=== PATIENT | male | born 1955 | race Caucasian/White ===

== ENCOUNTER → 2017-08-08 16:01 | Outpatient (CLI) | payer BC, SELFPAY ==
[2017-08-08 17:19] LABS: Absolute Lymphocyte Count 3.01 X10^3/ul (0.83-4.51); Absolute Neutrophil Count 6.2 X10^3/uL (2.0-7.7); Basophil# 0.03 X10^3/uL; Basophil% 0.3 % (0-1); Eosinophil# 0.18 X10^3/uL; Eosinophils% 1.7 % (0-5); Hematocrit 43.5 % (40-54); Hemoglobin 14.9 g/dl (13.0-16.5); Lymphocyte # 3.01 X10^3/ul (4.0); Lymphocyte % 28.6 % (19-41); Mean Corp Hgb Conc 34.3 g/gl (32-36); Mean Corpuscular Hgb 30.2 pg (27.0-32.0); Mean Corpuscular Volume 88.1 fL (80-94); Mean Platelet Vol. 10.8 fl (6.2-12.0); Monocyte# 1.09 X10^3/uL; Monocyte% 10.4 % (0-10); Neutrophil # 6.17 X10^3/uL (2.7-7.7); Neutrophil % 58.7 % (47-70); Platelet Count 203 K/mm3 (150-450); RBC Distribution Width CV 13.3 % (11.6-14.6); RBC Distribution Width SD 42.6 fl (35.1-43.9); Red Blood Count 4.94 M/mm3 (4.6-6.2); White Blood Count 10.5 K/mm3 (4.4-11.0)
[2017-08-08 17:26] LABS: ALB/GLOB Ratio 1.2 RATIO (0.9-2.4); AST(SGOT) 23 U/L (15-37); Alanine Aminotransfer ALT/SGPT 51 U/L (16-61); Albumin, Serum 3.7 g/dL (3.2-5.0); Alkaline Phosphatase 75 U/L (45-117); Anion Gap 8 (5-15); BUN 12 mg/dL (7-18); BUN/Creat Ratio 11.7 RATIO (10-20); Calcium,Total 8.6 mg/dL (8.5-10.1); Chloride 107 mmol/L (98-107); Creatinine, Serum 1.03 mg/dL (0.70-1.30); EST Glomerular Filtration Rate 78 mL/min (>60); Est Glom Filt Rate - Afr Amer 94 mL/min (>60); Globulin 3.1 g/dL (2.2-4.2); Glucose 91 mg/dL (74-106); Potassium 3.8 mmol/L (3.5-5.1); Protein, Total 6.8 g/dL (6.4-8.2); Sodium Level 142 mmol/L (136-145); Thyroid Stim Hormone (TSH) 1.68 uIU/mL (0.358-3.74); Vitamin D,25 Hydroxy 17.3 ng/mL (29.95-100.01)
[2017-08-08 17:58] LABS: POSITIVE COUNT NO; POSITIVE DIFFERENTIAL NO; POSITIVE MORPHOLOGY NO
== END ==
PROVIDERS: Family Provider Family Medicine Geriatric Medicine; PCP Family Medicine Geriatric Medicine; Visit Provider Family Medicine Geriatric Medicine
DX: E11.9 Type 2 diabetes mellitus without complications (principal); E55.9 Vitamin D deficiency, unspecified; F52.8 Other sexual dysfunction not due to a substance or known physiological condition; I10 Essential (primary) hypertension
CPT/HCPCS: 36415; 80053; 82306; 84403; 84443; 85025

== ENCOUNTER → 2017-12-19 15:22 | Outpatient (CLI) | payer BC, SELFPAY ==
[2017-12-19 17:35] LABS: Absolute Lymphocyte Count 2.73 X10^3/ul (0.83-4.51); Absolute Neutrophil Count 6.1 X10^3/uL (2.0-7.7); Basophil# 0.03 X10^3/uL; Basophil% 0.3 % (0-1); Eosinophil# 0.13 X10^3/uL; Eosinophils% 1.3 % (0-5); Hematocrit 45.1 % (40-54); Hemoglobin 15.2 g/dl (13.0-16.5); Lymphocyte # 2.73 X10^3/ul (4.0); Lymphocyte % 27.6 % (19-41); Mean Corp Hgb Conc 33.7 g/gl (32-36); Mean Corpuscular Hgb 29.5 pg (27.0-32.0); Mean Corpuscular Volume 87.4 fL (80-94); Mean Platelet Vol. 11.1 fl (6.2-12.0); Monocyte# 0.92 X10^3/uL; Monocyte% 9.3 % (0-10); Neutrophil # 6.05 X10^3/uL (2.7-7.7); Neutrophil % 61.3 % (47-70); Platelet Count 219 K/mm3 (150-450); RBC Distribution Width CV 13.5 % (11.6-14.6); RBC Distribution Width SD 42.9 fl (35.1-43.9); Red Blood Count 5.16 M/mm3 (4.6-6.2); White Blood Count 9.9 K/mm3 (4.4-11.0)
[2017-12-19 17:40] LABS: POSITIVE COUNT NO; POSITIVE DIFFERENTIAL NO; POSITIVE MORPHOLOGY NO
[2017-12-19 18:48] LABS: ALB/GLOB Ratio 1.2 RATIO (0.9-2.4); AST(SGOT) 35 U/L (15-37); Alanine Aminotransfer ALT/SGPT 69 U/L (16-61); Albumin, Serum 3.9 g/dL (3.2-5.0); Alkaline Phosphatase 78 U/L (45-117); Anion Gap 12 (5-15); BUN 9 mg/dL (7-18); BUN/Creat Ratio 9.6 RATIO (10-20); Calcium,Total 8.9 mg/dL (8.5-10.1); Chloride 105 mmol/L (98-107); Creatinine, Serum 0.94 mg/dL (0.70-1.30); EST Glomerular Filtration Rate 86 mL/min (>60); Est Glom Filt Rate - Afr Amer 104 mL/min (>60); Globulin 3.2 g/dL (2.2-4.2); Glucose 113 mg/dL (74-106); PSA,Total - Annual Screen 0.76 ng/mL (0.00-4.00); Potassium 3.8 mmol/L (3.5-5.1); Protein, Total 7.1 g/dL (6.4-8.2); Sodium Level 141 mmol/L (136-145); Thyroid Stim Hormone (TSH) 2.61 uIU/mL (0.358-3.74)
[2017-12-21 15:38] LABS: Hep C Antibodies <0.1 s/co ratio (0.0-0.9)
== END ==
PROVIDERS: Family Provider Family Medicine Geriatric Medicine; PCP Family Medicine Geriatric Medicine; Visit Provider Family Medicine Geriatric Medicine
DX: E11.9 Type 2 diabetes mellitus without complications (principal); F52.8 Other sexual dysfunction not due to a substance or known physiological condition; I10 Essential (primary) hypertension; Z12.5 Encounter for screening for malignant neoplasm of prostate; Z13.89 Encounter for screening for other disorder
CPT/HCPCS: 36415; 80053; 84153; 84403; 84443; 85025; 86803; G0103

== ENCOUNTER → 2018-03-20 13:52 | Outpatient (CLI) | payer BC, SELFPAY ==
[2018-03-20 17:27] LABS: Absolute Lymphocyte Count 2.55 X10^3/ul (0.83-4.51); Absolute Neutrophil Count 6.8 X10^3/uL (2.0-7.7); Basophil# 0.03 X10^3/uL; Basophil% 0.3 % (0-1); Eosinophil# 0.11 X10^3/uL; Hematocrit 44.4 % (40-54); Hemoglobin 15.1 g/dl (13.0-16.5); Lymphocyte # 2.55 X10^3/ul (4.0); Lymphocyte % 24.1 % (19-41); Mean Corpuscular Hgb 29.8 pg (27.0-32.0); Mean Corpuscular Volume 87.7 fL (80-94); Mean Platelet Vol. 11.5 fl (6.2-12.0); Monocyte# 1.09 X10^3/uL; Monocyte% 10.3 % (0-10); Neutrophil # 6.76 X10^3/uL (2.7-7.7); Neutrophil % 64.1 % (47-70); Platelet Count 212 K/mm3 (150-450); RBC Distribution Width CV 13.5 % (11.6-14.6); RBC Distribution Width SD 42.9 fl (35.1-43.9); Red Blood Count 5.06 M/mm3 (4.6-6.2); White Blood Count 10.6 K/mm3 (4.4-11.0)
[2018-03-20 17:40] LABS: ALB/GLOB Ratio 1.2 RATIO (0.9-2.4); AST(SGOT) 32 U/L (15-37); Alanine Aminotransfer ALT/SGPT 58 U/L (16-61); Albumin, Serum 3.7 g/dL (3.2-5.0); Alkaline Phosphatase 87 U/L (45-117); Anion Gap 9 (5-15); BUN 11 mg/dL (7-18); BUN/Creat Ratio 9.5 RATIO (10-20); Calcium,Total 8.8 mg/dL (8.5-10.1); Chloride 104 mmol/L (98-107); Creatinine, Serum 1.16 mg/dL (0.70-1.30); EST Glomerular Filtration Rate 68 mL/min (>60); Est Glom Filt Rate - Afr Amer 82 mL/min (>60); Globulin 3.2 g/dL (2.2-4.2); Glucose 140 mg/dL (74-106); Potassium 3.9 mmol/L (3.5-5.1); Protein, Total 6.9 g/dL (6.4-8.2); Sodium Level 140 mmol/L (136-145); Thyroid Stim Hormone (TSH) 1.48 uIU/mL (0.358-3.74)
[2018-03-20 17:46] LABS: POSITIVE COUNT NO; POSITIVE DIFFERENTIAL NO; POSITIVE MORPHOLOGY NO
== END ==
PROVIDERS: Family Provider Family Medicine Geriatric Medicine; PCP Family Medicine Geriatric Medicine; Visit Provider Family Medicine Geriatric Medicine
DX: E11.9 Type 2 diabetes mellitus without complications (principal); F52.8 Other sexual dysfunction not due to a substance or known physiological condition; I10 Essential (primary) hypertension
CPT/HCPCS: 36415; 80053; 84403; 84443; 85025

== ENCOUNTER → 2018-06-20 16:25 | Outpatient (CLI) | payer BC, SELFPAY ==
[2018-06-20 17:09] LABS: Absolute Neutrophil Count 6.7 X10^3/uL (2.0-7.7); Basophil# 0.03 X10^3/uL; Basophil% 0.3 % (0-1); Eosinophil# 0.15 X10^3/uL; Eosinophils% 1.4 % (0-5); Hematocrit 44.1 % (40-54); Lymphocyte % 27.5 % (19-41); Mean Corpuscular Hgb 29.7 pg (27.0-32.0); Mean Corpuscular Volume 87.3 fL (80-94); Mean Platelet Vol. 11.1 fl (6.2-12.0); Monocyte# 0.97 X10^3/uL; Monocyte% 8.9 % (0-10); Neutrophil # 6.72 X10^3/uL (2.7-7.7); Neutrophil % 61.5 % (47-70); Platelet Count 207 K/mm3 (150-450); RBC Distribution Width CV 13.4 % (11.6-14.6); Red Blood Count 5.05 M/mm3 (4.6-6.2); White Blood Count 10.9 K/mm3 (4.4-11.0)
[2018-06-20 17:17] LABS: POSITIVE COUNT NO; POSITIVE DIFFERENTIAL NO; POSITIVE MORPHOLOGY NO
[2018-06-20 17:56] LABS: ALB/GLOB Ratio 1.2 RATIO (0.9-2.4); AST(SGOT) 26 U/L (15-37); Alanine Aminotransfer ALT/SGPT 55 U/L (16-61); Albumin, Serum 3.8 g/dL (3.2-5.0); Alkaline Phosphatase 93 U/L (45-117); Anion Gap 9 (5-15); BUN 9 mg/dL (7-18); Calcium,Total 8.8 mg/dL (8.5-10.1); Chloride 101 mmol/L (98-107); EST Glomerular Filtration Rate 80 mL/min (>60); Est Glom Filt Rate - Afr Amer 97 mL/min (>60); Globulin 3.1 g/dL (2.2-4.2); Glucose 199 mg/dL (74-106); Potassium 3.7 mmol/L (3.5-5.1); Protein, Total 6.9 g/dL (6.4-8.2); Sodium Level 139 mmol/L (136-145); Thyroid Stim Hormone (TSH) 1.75 uIU/mL (0.358-3.74)
== END ==
PROVIDERS: Family Provider Family Medicine Geriatric Medicine; PCP Family Medicine Geriatric Medicine; Visit Provider Family Medicine Geriatric Medicine
DX: E11.9 Type 2 diabetes mellitus without complications (principal); E23.6 Other disorders of pituitary gland; F52.8 Other sexual dysfunction not due to a substance or known physiological condition; I10 Essential (primary) hypertension
CPT/HCPCS: 36415; 80053; 84403; 84443; 85025

== ENCOUNTER → 2018-09-19 | Outpatient (CLI) | payer BC, SELFPAY ==
[2016-08-23 12:00] VITALS: BMI 39.2
[2018-09-19 17:33] LABS: Absolute Lymphocyte Count 2.82 X10^3/ul (0.83-4.51); Absolute Neutrophil Count 6.4 X10^3/uL (2.0-7.7); Basophil# 0.03 X10^3/uL; Basophil% 0.3 % (0-1); Eosinophil# 0.13 X10^3/uL; Eosinophils% 1.2 % (0-5); Hematocrit 43.5 % (40-54); Hemoglobin 14.7 g/dl (13.0-16.5); Lymphocyte # 2.82 X10^3/ul (4.0); Lymphocyte % 26.4 % (19-41); Mean Corp Hgb Conc 33.8 g/gl (32-36); Mean Corpuscular Hgb 28.8 pg (27.0-32.0); Mean Corpuscular Volume 85.3 fL (80-94); Monocyte# 1.31 X10^3/uL; Monocyte% 12.2 % (0-10); Neutrophil # 6.38 X10^3/uL (2.7-7.7); Neutrophil % 59.6 % (47-70); Platelet Count 209 K/mm3 (150-450); RBC Distribution Width CV 13.7 % (11.6-14.6); White Blood Count 10.7 K/mm3 (4.4-11.0)
[2018-09-19 17:59] LABS: POSITIVE COUNT NO; POSITIVE DIFFERENTIAL NO; POSITIVE MORPHOLOGY NO
[2018-09-19 18:18] LABS: ALB/GLOB Ratio 1.2 RATIO (0.9-2.4); AST(SGOT) 25 U/L (15-37); Alanine Aminotransfer ALT/SGPT 45 U/L (16-61); Albumin, Serum 3.7 g/dL (3.2-5.0); Alkaline Phosphatase 74 U/L (45-117); Anion Gap 9 (5-15); BUN 12 mg/dL (7-18); BUN/Creat Ratio 12.4 RATIO (10-20); Calcium,Total 9.1 mg/dL (8.5-10.1); Chloride 105 mmol/L (98-107); Creatinine, Serum 0.96 mg/dL (0.70-1.30); EST Glomerular Filtration Rate 83 mL/min (>60); Est Glom Filt Rate - Afr Amer 101 mL/min (>60); Globulin 3.2 g/dL (2.2-4.2); Glucose 83 mg/dL (74-106); Potassium 3.8 mmol/L (3.5-5.1); Protein, Total 6.9 g/dL (6.4-8.2); Sodium Level 141 mmol/L (136-145); Thyroid Stim Hormone (TSH) 2.24 uIU/mL (0.358-3.74)
== END | disposition home or self-care (01) ==
LOC: POLAB3 16:26
PROVIDERS: Family Provider Family Medicine Geriatric Medicine; PCP Family Medicine Geriatric Medicine; Visit Provider Family Medicine Geriatric Medicine
DX: E11.9 Type 2 diabetes mellitus without complications (principal); F52.8 Other sexual dysfunction not due to a substance or known physiological condition; I10 Essential (primary) hypertension
CPT/HCPCS: 36415; 80053; 84403; 84443; 85025

== ENCOUNTER → 2018-12-20 | Outpatient (CLI) | payer BC, SELFPAY ==
[2016-08-23 12:00] VITALS: BMI 39.2
[2018-12-20 17:21] LABS: ALB/GLOB Ratio 1.1 RATIO (0.9-2.4); AST(SGOT) 27 U/L (15-37); Alanine Aminotransfer ALT/SGPT 37 U/L (16-61); Albumin, Serum 3.6 g/dL (3.2-5.0); Alkaline Phosphatase 74 U/L (45-117); Anion Gap 4 (5-15); BUN 9 mg/dL (7-18); BUN/Creat Ratio 8.7 RATIO (10-20); Calcium,Total 8.8 mg/dL (8.5-10.1); Chloride 109 mmol/L (98-107); Creatinine, Serum 1.03 mg/dL (0.70-1.30); EST Glomerular Filtration Rate 77 mL/min (>60); Est Glom Filt Rate - Afr Amer 94 mL/min (>60); Globulin 3.3 g/dL (2.2-4.2); Glucose 87 mg/dL (74-106); PSA,Total - Annual Screen 0.48 ng/mL (0.00-4.00); Potassium 4.3 mmol/L (3.5-5.1); Protein, Total 6.9 g/dL (6.4-8.2); Sodium Level 141 mmol/L (136-145)
[2018-12-20 18:29] LABS: Hematocrit 43.9 % (40-54); Hemoglobin 14.7 g/dL (13.0-16.5); Mean Corpuscular Volume 90.3 fL (80-94); Red Blood Count 4.86 M/mm3 (4.6-6.2)
[2018-12-20 18:30] LABS: Basophil% 0.5 % (0-1); Differential Indicated SCAN CRITERIA MET; Eosinophils% 1.8 % (0-5); Lymphocyte % 26.5 % (19-41); Mean Corp Hgb Conc 33.5 g/dL (32-36); Mean Corpuscular Hgb 30.2 pg (27.0-32.0); Mean Platelet Vol. 11.5 fl (6.2-12.0); Monocyte% 9.8 % (0-10); POSITIVE COUNT YES; POSITIVE DIFFERENTIAL NO; POSITIVE MORPHOLOGY NO; Platelet Count 186 K/mm3 (150-450); RBC Distribution Width CV 13.5 % (11.6-14.6); RBC Distribution Width SD 44.7 fl (35.1-43.9)
[2018-12-20 18:31] LABS: Absolute Lymphocyte Count 2.65 X10^3/uL (0.83-4.51); Absolute Neutrophil Count 6.1 X10^3/uL (2.0-7.7); Basophil# 0.05 X10^3/uL; Eosinophil# 0.18 X10^3/uL; Lymphocyte # 2.65 X10^3/ul (4.0); Monocyte# 0.98 X10^3/uL; Neutrophil # 6.09 X10^3/uL (2.7-7.7)
[2018-12-20 18:32] LABS: Platelet Estimate ADEQUATE (ADEQ); Red Cell Morphology NORM C+C NORMAL (NORM C&C)
== END | disposition home or self-care (01) ==
LOC: POLAB3 16:03
PROVIDERS: Family Provider Family Medicine Geriatric Medicine; PCP Family Medicine Geriatric Medicine; Visit Provider Family Medicine Geriatric Medicine
DX: E11.9 Type 2 diabetes mellitus without complications (principal); E23.6 Other disorders of pituitary gland; I10 Essential (primary) hypertension; Z12.5 Encounter for screening for malignant neoplasm of prostate
CPT/HCPCS: 36415; 80053; 84153; 84403; 84443; 85025; G0103

== ENCOUNTER → 2019-06-20 15:36 | Outpatient (CLI) | payer BC, SELFPAY ==
[2016-08-23 12:00] VITALS: BMI 39.2
[2019-06-20 17:27] LABS: Absolute Lymphocyte Count 2.57 X10^3/uL (0.83-4.51); Absolute Neutrophil Count 5.7 X10^3/uL (2.0-7.7); Basophil# 0.04 X10^3/uL; Basophil% 0.4 % (0-1); Eosinophil# 0.16 X10^3/uL; Eosinophils% 1.7 % (0-5); Hematocrit 43.9 % (40-54); Hemoglobin 14.6 g/dL (13.0-16.5); Lymphocyte # 2.57 X10^3/ul (4.0); Lymphocyte % 27.3 % (19-41); Mean Corp Hgb Conc 33.3 g/dL (32-36); Mean Corpuscular Hgb 29.6 pg (27.0-32.0); Mean Corpuscular Volume 88.9 fL (80-94); Mean Platelet Vol. 10.8 fl (6.2-12.0); Monocyte# 0.93 X10^3/uL; Monocyte% 9.9 % (0-10); NRBC Flagged by Analyzer 0 % (0-5); Neutrophil # 5.68 X10^3/uL (2.7-7.7); Neutrophil % 60.2 % (47-70); Platelet Count 217 K/mm3 (150-450); RBC Distribution Width CV 13.8 % (11.6-14.6); RBC Distribution Width SD 44.6 fl (35.1-43.9); Red Blood Count 4.94 M/mm3 (4.6-6.2); White Blood Count 9.4 K/mm3 (4.4-11.0)
[2019-06-20 18:05] LABS: ALB/GLOB Ratio 1.2 RATIO (0.9-2.4); AST(SGOT) 21 U/L (15-37); Alanine Aminotransfer ALT/SGPT 48 U/L (16-61); Albumin, Serum 3.8 g/dL (3.2-5.0); Alkaline Phosphatase 76 U/L (45-117); Anion Gap 5 (5-15); BUN 11 mg/dL (7-18); BUN/Creat Ratio 9.9 RATIO (10-20); Chloride 105 mmol/L (98-107); Creatinine, Serum 1.11 mg/dL (0.70-1.30); EST Glomerular Filtration Rate 71 mL/min (>60); Est Glom Filt Rate - Afr Amer 86 mL/min (>60); Globulin 3.1 g/dL (2.2-4.2); Glucose 130 mg/dL (74-106); Potassium 3.9 mmol/L (3.5-5.1); Protein, Total 6.9 g/dL (6.4-8.2); Sodium Level 139 mmol/L (136-145); Thyroid Stim Hormone (TSH) 1.89 uIU/mL (0.358-3.74)
== END ==
PROVIDERS: PCP Family Medicine Geriatric Medicine; Visit Provider Family Medicine Geriatric Medicine
DX: E11.9 Type 2 diabetes mellitus without complications (principal); F52.8 Other sexual dysfunction not due to a substance or known physiological condition; I10 Essential (primary) hypertension
CPT/HCPCS: 36415; 80053; 84403; 84443; 85025

== ENCOUNTER → 2019-12-24 15:26 | Outpatient (CLI) | payer BC, SELFPAY ==
[2016-08-23 12:00] VITALS: BMI 39.2
[2019-12-24 17:19] LABS: Absolute Lymphocyte Count 2.59 X10^3/uL (0.83-4.51); Absolute Neutrophil Count 6.3 X10^3/uL (2.0-7.7); Basophil# 0.04 X10^3/uL; Basophil% 0.4 % (0-1); Eosinophil# 0.16 X10^3/uL; Eosinophils% 1.6 % (0-5); Hemoglobin 14.7 g/dL (13.0-16.5); Lymphocyte # 2.59 X10^3/ul (4.0); Lymphocyte % 25.8 % (19-41); Mean Corp Hgb Conc 33.4 g/dL (32-36); Mean Corpuscular Hgb 29.8 pg (27.0-32.0); Mean Corpuscular Volume 89.1 fL (80-94); Monocyte# 0.91 X10^3/uL; Monocyte% 9.1 % (0-10); NRBC Flagged by Analyzer 0 % (0-5); Neutrophil # 6.29 X10^3/uL (2.7-7.7); Neutrophil % 62.7 % (47-70); Platelet Count 233 K/mm3 (150-450); RBC Distribution Width CV 13.2 % (11.6-14.6); RBC Distribution Width SD 43.2 fl (35.1-43.9); Red Blood Count 4.94 M/mm3 (4.6-6.2)
[2019-12-24 17:40] LABS: Vitamin D,25 Hydroxy 33.1 ng/mL
[2019-12-24 17:53] LABS: ALB/GLOB Ratio 1.2 RATIO (0.9-2.4); AST(SGOT) 17 U/L (15-37); Alanine Aminotransfer ALT/SGPT 40 U/L (16-61); Albumin, Serum 3.7 g/dL (3.2-5.0); Alkaline Phosphatase 75 U/L (45-117); Anion Gap 4 (5-15); BUN 12 mg/dL (7-18); BUN/Creat Ratio 9.9 RATIO (10-20); Calcium,Total 8.9 mg/dL (8.5-10.1); Chloride 108 mmol/L (98-107); Creatinine, Serum 1.21 mg/dL (0.70-1.30); EST Glomerular Filtration Rate 64 mL/min (>60); Est Glom Filt Rate - Afr Amer 77 mL/min (>60); Globulin 3.1 g/dL (2.2-4.2); Glucose 108 mg/dL (74-106); PSA,Total - Annual Screen 1.27 ng/mL (0.00-4.00); Potassium 3.7 mmol/L (3.5-5.1); Protein, Total 6.8 g/dL (6.4-8.2); Sodium Level 141 mmol/L (136-145); Thyroid Stim Hormone (TSH) 2.02 uIU/mL (0.358-3.74)
== END ==
PROVIDERS: PCP Family Medicine Geriatric Medicine; Visit Provider Family Medicine Geriatric Medicine
DX: E11.9 Type 2 diabetes mellitus without complications (principal); E55.9 Vitamin D deficiency, unspecified; F52.8 Other sexual dysfunction not due to a substance or known physiological condition; I10 Essential (primary) hypertension; Z12.5 Encounter for screening for malignant neoplasm of prostate
CPT/HCPCS: 36415; 80053; 82306; 84153; 84403; 84443; 85025; G0103

== ENCOUNTER → 2020-06-23 15:44 | Outpatient (CLI) | payer MEDICARE, SELFPAY ==
[2016-08-23 12:00] VITALS: BMI 39.2
[2020-06-23 17:03] LABS: Absolute Lymphocyte Count 2.95 X10^3/uL (0.83-4.51); Absolute Neutrophil Count 6.3 X10^3/uL (2.0-7.7); Basophil# 0.05 X10^3/uL; Basophil% 0.5 % (0-1); Eosinophil# 0.15 X10^3/uL; Eosinophils% 1.4 % (0-5); Hematocrit 45.4 % (40-54); Hemoglobin 14.8 g/dL (13.0-16.5); Lymphocyte # 2.95 X10^3/ul (4.0); Lymphocyte % 28.3 % (19-41); Mean Corp Hgb Conc 32.6 g/dL (32-36); Mean Corpuscular Hgb 28.8 pg (27.0-32.0); Mean Corpuscular Volume 88.3 fL (80-94); Mean Platelet Vol. 10.8 fl (6.2-12.0); Monocyte# 0.89 X10^3/uL; Monocyte% 8.5 % (0-10); NRBC Flagged by Analyzer 0 % (0-5); Neutrophil # 6.33 X10^3/uL (2.7-7.7); Neutrophil % 60.7 % (47-70); Platelet Count 237 K/mm3 (150-450); RBC Distribution Width CV 13.8 % (11.6-14.6); RBC Distribution Width SD 44.4 fl (35.1-43.9); Red Blood Count 5.14 M/mm3 (4.6-6.2); White Blood Count 10.4 K/mm3 (4.4-11.0)
[2020-06-23 17:36] LABS: Vitamin D,25 Hydroxy 11.8 ng/mL
[2020-06-23 18:17] LABS: ALB/GLOB Ratio 1.2 RATIO (0.9-2.4); AST(SGOT) 23 U/L (15-37); Alanine Aminotransfer ALT/SGPT 48 U/L (16-61); Albumin, Serum 3.7 g/dL (3.2-5.0); Alkaline Phosphatase 92 U/L (45-117); Anion Gap 6 (5-15); BUN 12 mg/dL (7-18); BUN/Creat Ratio 11.4 RATIO (10-20); Calcium,Total 9.1 mg/dL (8.5-10.1); Chloride 104 mmol/L (98-107); Creatinine, Serum 1.05 mg/dL (0.70-1.30); EST Glomerular Filtration Rate 75 mL/min (>60); Est Glom Filt Rate - Afr Amer 91 mL/min (>60); Globulin 3.2 g/dL (2.2-4.2); Glucose 144 mg/dL (74-106); Potassium 4.1 mmol/L (3.5-5.1); Protein, Total 6.9 g/dL (6.4-8.2); Sodium Level 140 mmol/L (136-145)
== END ==
PROVIDERS: PCP Family Medicine Geriatric Medicine; Visit Provider Family Medicine Geriatric Medicine
DX: E11.9 Type 2 diabetes mellitus without complications (principal); E55.9 Vitamin D deficiency, unspecified; F52.8 Other sexual dysfunction not due to a substance or known physiological condition; I10 Essential (primary) hypertension
CPT/HCPCS: 36415; 80053; 82306; 84403; 84443; 85025

== ENCOUNTER → 2020-12-24 11:28 | Outpatient (CLI) | payer MEDICARE, SELFPAY ==
[2020-12-24 12:47] LABS: Absolute Lymphocyte Count 0.89 X10^3/uL (0.83-4.51); Absolute Neutrophil Count 4.6 X10^3/uL (2.0-7.7); Basophil# 0.03 X10^3/uL; Basophil% 0.5 % (0-1); Eosinophils% 1.6 % (0-5); Hematocrit 41.7 % (40-54); Hemoglobin 13.3 g/dL (13.0-16.5); Lymphocyte # 0.89 X10^3/ul (0.83-4.51); Lymphocyte % 13.9 % (19-41); Mean Corp Hgb Conc 31.9 g/dL (32-36); Mean Corpuscular Hgb 31.7 pg (27.0-32.0); Mean Corpuscular Volume 99.3 fL (80-94); Mean Platelet Vol. 11.6 fl (6.2-12.0); Monocyte# 0.74 X10^3/uL; Monocyte% 11.5 % (0-10); NRBC Flagged by Analyzer 0 % (0-5); Neutrophil # 4.63 X10^3/uL (2.7-7.7); Neutrophil % 72.2 % (47-70); Platelet Count 233 K/mm3 (150-450); RBC Distribution Width CV 15.7 % (11.6-14.6); RBC Distribution Width SD 57.1 fl (35.1-43.9); White Blood Count 6.4 K/mm3 (4.4-11.0)
[2020-12-24 13:05] LABS: Vitamin D,25 Hydroxy 33.5 ng/mL
[2020-12-24 13:26] LABS: ALB/GLOB Ratio 1.1 RATIO (0.9-2.4); AST(SGOT) 35 U/L (15-37); Alanine Aminotransfer ALT/SGPT 62 U/L (16-61); Albumin, Serum 3.4 g/dL (3.2-5.0); Alkaline Phosphatase 82 U/L (45-117); Anion Gap 5 (5-15); BUN 10 mg/dL (7-18); BUN/Creat Ratio 10.3 RATIO (10-20); Calcium,Total 8.8 mg/dL (8.5-10.1); Chloride 107 mmol/L (98-107); Creatinine, Serum 0.97 mg/dL (0.70-1.30); EST Glomerular Filtration Rate 82 mL/min (>60); Est Glom Filt Rate - Afr Amer 100 mL/min (>60); Globulin 3.2 g/dL (2.2-4.2); Glucose 228 mg/dL (74-106); PSA,Total - Annual Screen 0.65 ng/mL (0.00-4.00); Protein, Total 6.6 g/dL (6.4-8.2); Sodium Level 138 mmol/L (136-145); Thyroid Stim Hormone (TSH) 2.81 uIU/mL (0.358-3.74)
== END ==
PROVIDERS: PCP Family Medicine Geriatric Medicine; Visit Provider Family Medicine Geriatric Medicine
DX: E11.9 Type 2 diabetes mellitus without complications (principal); E55.9 Vitamin D deficiency, unspecified; F52.8 Other sexual dysfunction not due to a substance or known physiological condition; I10 Essential (primary) hypertension; Z12.5 Encounter for screening for malignant neoplasm of prostate
CPT/HCPCS: 36415; 80053; 82306; 84153; 84403; 84443; 85025; G0103

== ENCOUNTER 2021-03-09 04:23 | Emergency (ER) | payer MEDICARE, SELFPAY ==
[2021-03-09 04:24] VITALS: BP 173/92; PULSE 91; RESP 16; TEMP 36.2; O2SAT 99; BMI 43.9
--- NOTE | 2021-03-09 05:00 | ED.VIS.LOWEX ---
HPI History of Present Illness Chief Complaint: Lower Extremity Injury Informant: patient and spouse/S.O. Narrative Narrative: Patient is a 65-year-old male with history of hypertension, diabetes and peripheral neuropathy presenting with left lower extremity pain and redness. Patient states he woke up and felt that his left lower leg was swollen and tender. He also noticed it felt red and hot. He notes it felt better when he started moving around. He is concerned he could have a blood clot and came to the emergency room to be evaluated further. He denies any history of DVT or PE. He denies any recent trauma, immobilization or other risk factors. He notes he does have a history of dependent edema and what sounds like venous stasis. How he denies any fever or chills. [place] any chest pain, shortness of breath or difficulty breathing. No new numbness or tingling. No other complaints at this time. [facility] Medical History Diabetes mellitus High cholesterol HTN (hypertension) Home Medications metoprolol tartrate 25 mg PO BID 08/23/16 [History Last Taken 08/23/16] cephalexin 500 mg PO Q6 #40 cap 03/09/21 [Rx Last Taken Unknown] hydrochlorothiazide 25 mg PO DAILY 03/09/21 [History Last Taken Unknown] losartan 100 mg PO DAILY 03/09/21 [History Last Taken Unknown] metformin 1,000 mg PO BID 03/09/21 [History Last Taken Unknown] pioglitazone 30 mg PO DAILY 03/09/21 [History Last Taken Unknown] pravastatin 80 mg PO DAILY 03/09/21 [History Last Taken Unknown] Allergy/AdvReac Type Severity Reaction Status Date / Time No Known Allergies Allergy Verified 03/09/21 04:35 Social History Smoking Status: Former smoker ROS ROS ED Constitutional Constitutional ED: Denies chills or fever(s) Eyes Eyes: Denies change in vision ENT ENT ED: Denies rhinorrhea or sore throat Cardiovascular Cardiovascular: Denies chest pain or palpitations Respiratory/Chest Respiratory/Chest: Denies cough or dyspnea Gastrointestinal Gastrointestinal: Denies abdominal pain or nausea Genitourinary Genitourinary ED: Denies dysuria or hematuria Musculoskeletal Musculoskeletal: Reports other Details: left leg redness and pain ; Denies arthralgias or myalgias Integumentary Reports rash Neurologic Neurologic: Denies headache(s), paresthesias or weakness Psychiatric Psychiatric: Denies anxiety or depression EXAM Physical Exam Const Vital Signs: 03/09/21 04:24 Temperature 97.2 F L Temperature Source Temporal Pulse Rate 91 Respiratory Rate 16 Blood Pressure 173/92 H Blood Pressure Mean 119 Pulse Ox 99 Positive well nourished and well developed General Appearance ED: well developed HEENT normocephalic and atraumatic Eyes PERRL Neck full ROM and supple Chest Wall inspection of chest normal Resp normal respiratory effort and clear to auscultation bilaterally Cardio regular rate, regular rhythm and no murmurs Cardio Narrative: 2+ DP and PT pulses GI non-distended Extremity normal to inspection and full ROM Extremity Narrative: No palpable cords General Extremety ED: Negative for edema General Extremity: Negative for edema Neuro oriented x3 and moves all extremities Sensorium / Orientation: alert Motor Exam: strength 5/5 throughout Psych mental status grossly normal Skin Skin Narrative: Bilateral venous stasis changes to the ankles. On the left patient has more pronounced erythema of the distal shins and erythema involving the posterior calf. There is no associated warmth or fluctuance. No drainage. No significant tenderness to palpation. MDM MDM MDM Narrative Medical decision making narrative: Patient is evaluated for and discomfort to his left lower extremity. He appears nontoxic and in no acute distress. Vital signs are markable for mild hypertension. Patient is not have any risk factors for DVT or PE. Differential includes superficial thrombophlebitis, early cellulitis or DVT. Patient does not have any physical exam or symptoms consistent with a PE. Will obtain a D-dimer as I do think he is low risk. I am more concerned for possible infection and will cover him with Keflex. D-dimer is normal. I do not think a venous duplex is indicated. I suspect patient has cellulitis. Will be started on Keflex and given first dose in the emergency room. Patient agreeable with this. Instructed to take ibuprofen or Tylenol as needed for pain and wear compression stockings. Can do cool compresses to the leg as needed for symptom relief. Will follow up with primary care doctor and given return precautions. Lab Data Attestation: I reviewed the patient's lab results. Labs: Laboratory Results - last 24 hr 03/09/21 04:54 D-Dimer Quant (PE/DVT) 0.38 Discharge Plan Triage Chief Complaint: Lower Extremity Injury ED Provider: Katie Hough Dx/Rx/DC Orders Clinical Impression: Cellulitis of left lower extremity without foot, Acute pain of left lower extremity Instructions: ED Cellulitis Prescriptions: New cephalexin 500 mg capsule 500 mg PO Q6 Qty: 40 RF: 0 No Action metoprolol tartrate 25 MG tablet 25 mg PO BID RF: 0 pravastatin 80 mg tablet 80 mg PO DAILY RF: 0 metformin 1,000 mg tablet 1,000 mg PO BID RF: 0 hydrochlorothiazide 25 mg tablet 25 mg PO DAILY RF: 0 pioglitazone 30 mg tablet 30 mg PO DAILY RF: 0 losartan 100 mg tablet 100 mg PO DAILY RF: 0 Primary Care Provider: William Arnold Chi Referrals: William Arnold Chi, MD [Primary Care Provider] - Activity Restrictions/Additional Instructions: Your D-dimer was normal today. I do not think this is a blood clot. I think you have either an early cellulitis/skin infection of your leg. Apply cool compresses. Wear compression stockings. Take antibiotics as prescribed. Return if you have worsening symptoms especially after 48 hours of being on the antibiotics. Disposition Disposition: Home, Self Care
[2021-03-09 05:13] LABS: D-Dimer Quantitative (DVT/PE) 0.38 FEU/ug/m (0.27-0.49)
[2021-03-09] MEDS: Cephalexin 250 MG Capsule 500 MG PO (05:27)
[2021-03-09 05:28] VITALS: PULSE 100; RESP 18; O2SAT 98
== END 2021-03-09 05:49 | disposition home or self-care (01) ==
PROVIDERS: Emergency Provider Emergency Medicine; PCP Family Medicine Geriatric Medicine
DX: L03.116 Cellulitis of left lower limb (principal); M79.605 Pain in left leg; I10 Essential (primary) hypertension; E11.42 Type 2 diabetes mellitus with diabetic polyneuropathy; E78.00 Pure hypercholesterolemia, unspecified; Z79.84 Long term (current) use of oral hypoglycemic drugs; Z79.899 Other long term (current) drug therapy; Z87.891 Personal history of nicotine dependence
CPT/HCPCS: 85379; 99283

== ENCOUNTER → 2021-03-30 09:51 | Outpatient (CLI) | payer MEDICARE, SELFPAY ==
[2021-03-30 12:38] LABS: Absolute Lymphocyte Count 1.49 X10^3/uL (0.83-4.51); Absolute Neutrophil Count 14.1 X10^3/uL (2.0-7.7); Basophil# 0.05 X10^3/uL; Basophil% 0.3 % (0-1); Eosinophil# 0.06 X10^3/uL; Eosinophils% 0.3 % (0-5); Hematocrit 45.3 % (40-54); Hemoglobin 14.9 g/dL (13.0-16.5); Lymphocyte # 1.49 X10^3/ul (0.83-4.51); Lymphocyte % 8.6 % (19-41); Mean Corp Hgb Conc 32.9 g/dL (32-36); Mean Corpuscular Hgb 28.9 pg (27.0-32.0); Mean Corpuscular Volume 87.8 fL (80-94); Mean Platelet Vol. 11.1 fl (6.2-12.0); Monocyte% 8.7 % (0-10); NRBC Flagged by Analyzer 0 % (0-5); Neutrophil # 14.13 X10^3/uL (2.7-7.7); Neutrophil % 81.6 % (47-70); Platelet Count 191 K/mm3 (150-450); RBC Distribution Width CV 13.6 % (11.6-14.6); RBC Distribution Width SD 44.1 fl (35.1-43.9); Red Blood Count 5.16 M/mm3 (4.6-6.2); White Blood Count 17.3 K/mm3 (4.4-11.0)
[2021-03-30 12:51] LABS: Vitamin D,25 Hydroxy 14.2 ng/mL
[2021-03-30 12:57] LABS: ALB/GLOB Ratio 0.9 RATIO (0.9-2.4); AST(SGOT) 18 U/L (15-37); Alanine Aminotransfer ALT/SGPT 39 U/L (16-61); Albumin, Serum 3.4 g/dL (3.2-5.0); Alkaline Phosphatase 95 U/L (45-117); Anion Gap 7 (5-15); BUN 9 mg/dL (7-18); BUN/Creat Ratio 9.1 RATIO (10-20); Calcium,Total 9.5 mg/dL (8.5-10.1); Chloride 103 mmol/L (98-107); Creatinine, Serum 0.99 mg/dL (0.70-1.30); EST Glomerular Filtration Rate 81 mL/min (>60); Est Glom Filt Rate - Afr Amer 97 mL/min (>60); Globulin 3.8 g/dL (2.2-4.2); Glucose 167 mg/dL (74-106); Potassium 3.9 mmol/L (3.5-5.1); Protein, Total 7.2 g/dL (6.4-8.2); Sodium Level 136 mmol/L (136-145); Thyroid Stim Hormone (TSH) 2.28 uIU/mL (0.358-3.74)
== END ==
PROVIDERS: PCP Family Medicine Geriatric Medicine; Visit Provider Family Medicine Geriatric Medicine
DX: E11.9 Type 2 diabetes mellitus without complications (principal); E23.6 Other disorders of pituitary gland; E55.9 Vitamin D deficiency, unspecified; I10 Essential (primary) hypertension; N39.0 Urinary tract infection, site not specified
CPT/HCPCS: 36415; 80053; 82306; 84403; 84443; 85025; 87086; 87088; 87186

== ENCOUNTER → 2021-04-29 11:16 | Outpatient (CLI) | payer MEDICARE, SELFPAY ==
[2021-04-29 12:32] LABS: Absolute Lymphocyte Count 2.34 X10^3/uL (0.83-4.51); Absolute Neutrophil Count 5.4 X10^3/uL (2.0-7.7); Basophil# 0.05 X10^3/uL; Basophil% 0.6 % (0-1); Eosinophil# 0.23 X10^3/uL; Eosinophils% 2.6 % (0-5); Hematocrit 43.8 % (40-54); Hemoglobin 14.7 g/dL (13.0-16.5); Lymphocyte # 2.34 X10^3/ul (0.83-4.51); Lymphocyte % 26.2 % (19-41); Mean Corp Hgb Conc 33.6 g/dL (32-36); Mean Corpuscular Hgb 29.7 pg (27.0-32.0); Mean Corpuscular Volume 88.5 fL (80-94); Mean Platelet Vol. 10.8 fl (6.2-12.0); Monocyte# 0.74 X10^3/uL; Monocyte% 8.3 % (0-10); NRBC Flagged by Analyzer 0 % (0-5); Neutrophil # 5.42 X10^3/uL (2.7-7.7); Neutrophil % 60.5 % (47-70); Platelet Count 194 K/mm3 (150-450); RBC Distribution Width CV 13.6 % (11.6-14.6); Red Blood Count 4.95 M/mm3 (4.6-6.2); White Blood Count 8.9 K/mm3 (4.4-11.0)
== END ==
PROVIDERS: PCP Family Medicine Geriatric Medicine; Visit Provider Family Medicine Geriatric Medicine
DX: D72.89 Other specified disorders of white blood cells (principal)
CPT/HCPCS: 36415; 85025

== ENCOUNTER 2021-06-22 09:45 | Outpatient (CLI) | payer MEDICARE, SELFPAY ==
[2021-06-22 12:19] LABS: Absolute Lymphocyte Count 2.58 X10^3/uL (0.83-4.51); Absolute Neutrophil Count 6.2 X10^3/uL (2.0-7.7); Basophil# 0.05 X10^3/uL; Basophil% 0.5 % (0-1); Eosinophil# 0.21 X10^3/uL; Eosinophils% 2.1 % (0-5); Hematocrit 45.1 % (40-54); Hemoglobin 15.1 g/dL (13.0-16.5); Lymphocyte # 2.58 X10^3/ul (0.83-4.51); Mean Corp Hgb Conc 33.5 g/dL (32-36); Mean Corpuscular Hgb 29.3 pg (27.0-32.0); Mean Corpuscular Volume 87.6 fL (80-94); Monocyte# 0.84 X10^3/uL; Monocyte% 8.5 % (0-10); NRBC Flagged by Analyzer 0 % (0-5); Neutrophil # 6.22 X10^3/uL (2.7-7.7); Neutrophil % 62.5 % (47-70); Platelet Count 199 K/mm3 (150-450); RBC Distribution Width CV 13.7 % (11.6-14.6); RBC Distribution Width SD 44.4 fl (35.1-43.9); Red Blood Count 5.15 M/mm3 (4.6-6.2); White Blood Count 9.9 K/mm3 (4.4-11.0)
[2021-06-22 12:48] LABS: Vitamin D,25 Hydroxy 15.6 ng/mL
[2021-06-22 13:13] LABS: ALB/GLOB Ratio 1.1 RATIO (0.9-2.4); AST(SGOT) 33 U/L (15-37); Alanine Aminotransfer ALT/SGPT 54 U/L (16-61); Albumin, Serum 3.7 g/dL (3.2-5.0); Alkaline Phosphatase 77 U/L (45-117); Anion Gap 8 (5-15); BUN 13 mg/dL (7-18); BUN/Creat Ratio 13.2 RATIO (10-20); Chloride 105 mmol/L (98-107); Creatinine, Serum 0.99 mg/dL (0.70-1.30); EST Glomerular Filtration Rate 81 mL/min (>60); Est Glom Filt Rate - Afr Amer 97 mL/min (>60); Globulin 3.3 g/dL (2.2-4.2); Glucose 155 mg/dL (74-106); Potassium 3.7 mmol/L (3.5-5.1); Sodium Level 139 mmol/L (136-145); Thyroid Stim Hormone (TSH) 2.11 uIU/mL (0.358-3.74)
== END 2021-06-22 23:59 | disposition home or self-care (01) ==
LOC: POLAB3 09:47
PROVIDERS: PCP Family Medicine Geriatric Medicine; Visit Provider Family Medicine Geriatric Medicine
DX: E55.9 Vitamin D deficiency, unspecified (principal); E11.9 Type 2 diabetes mellitus without complications; F52.8 Other sexual dysfunction not due to a substance or known physiological condition; I10 Essential (primary) hypertension
CPT/HCPCS: 36415; 80053; 82306; 84403; 84443; 85025

== ENCOUNTER → 2021-09-21 | Outpatient (CLI) | payer MEDICARE, SELFPAY ==
[2021-09-21 12:35] LABS: Absolute Lymphocyte Count 1.81 X10^3/uL (0.83-4.51); Absolute Neutrophil Count 4.8 X10^3/uL (2.0-7.7); Basophil# 0.03 X10^3/uL; Basophil% 0.4 % (0-1); Eosinophil# 0.17 X10^3/uL; Eosinophils% 2.2 % (0-5); Hematocrit 42.1 % (40-54); Hemoglobin 13.7 g/dL (13.0-16.5); Lymphocyte # 1.81 X10^3/ul (0.83-4.51); Lymphocyte % 23.4 % (19-41); Mean Corp Hgb Conc 32.5 g/dL (32-36); Mean Corpuscular Hgb 29.3 pg (27.0-32.0); Mean Platelet Vol. 11.3 fl (6.2-12.0); Monocyte% 10.3 % (0-10); NRBC Flagged by Analyzer 0 % (0-5); Neutrophil # 4.83 X10^3/uL (2.7-7.7); Neutrophil % 62.5 % (47-70); Platelet Count 187 K/mm3 (150-450); RBC Distribution Width CV 14.2 % (11.6-14.6); RBC Distribution Width SD 46.3 fl (35.1-43.9); Red Blood Count 4.68 M/mm3 (4.6-6.2); White Blood Count 7.7 K/mm3 (4.4-11.0)
[2021-09-21 12:43] LABS: Vitamin D,25 Hydroxy 31.7 ng/mL
[2021-09-21 12:53] LABS: BUN 11 mg/dL (7-18); Creatinine, Serum 0.96 mg/dL (0.70-1.30); Glucose 166 mg/dL (74-106)
[2021-09-21 12:54] LABS: ALB/GLOB Ratio 1.2 RATIO (0.9-2.4); AST(SGOT) 20 U/L (15-37); Alanine Aminotransfer ALT/SGPT 36 U/L (16-61); Albumin, Serum 3.5 g/dL (3.2-5.0); Alkaline Phosphatase 68 U/L (45-117); Anion Gap 5 (5-15); BUN/Creat Ratio 11.5 RATIO (10-20); Calcium,Total 8.7 mg/dL (8.5-10.1); Chloride 106 mmol/L (98-107); EST Glomerular Filtration Rate 84 mL/min (>60); Est Glom Filt Rate - Afr Amer 101 mL/min (>60); Globulin 2.8 g/dL (2.2-4.2); Potassium 3.6 mmol/L (3.5-5.1); Protein, Total 6.3 g/dL (6.4-8.2); Sodium Level 140 mmol/L (136-145); Thyroid Stim Hormone (TSH) 1.86 uIU/mL (0.358-3.74)
== END | disposition home or self-care (01) ==
LOC: POLAB3 10:05
PROVIDERS: PCP Family Medicine Geriatric Medicine; Visit Provider Family Medicine Geriatric Medicine
DX: E11.9 Type 2 diabetes mellitus without complications (principal); E55.9 Vitamin D deficiency, unspecified; I10 Essential (primary) hypertension
CPT/HCPCS: 36415; 80053; 82306; 84443; 85025

== ENCOUNTER → 2021-12-25 | Outpatient (CLI) | payer MEDICARE, SELFPAY ==
[2021-12-25 10:25] LABS: Absolute Neutrophil Count 5.2 X10^3/uL (2.0-7.7); Basophil# 0.05 X10^3/uL; Basophil% 0.6 % (0-1); Eosinophil# 0.17 X10^3/uL; Eosinophils% 1.9 % (0-5); Hematocrit 45.3 % (40-54); Lymphocyte % 28.4 % (19-41); Mean Corp Hgb Conc 33.1 g/dL (32-36); Mean Corpuscular Hgb 29.5 pg (27.0-32.0); Mean Platelet Vol. 11.2 fl (6.2-12.0); Monocyte# 0.86 X10^3/uL; Monocyte% 9.8 % (0-10); NRBC Flagged by Analyzer 0 % (0-5); Platelet Count 189 K/mm3 (150-450); RBC Distribution Width CV 13.8 % (11.6-14.6); RBC Distribution Width SD 44.8 fl (35.1-43.9); Red Blood Count 5.09 M/mm3 (4.6-6.2); White Blood Count 8.8 K/mm3 (4.4-11.0)
[2021-12-25 10:50] LABS: Vitamin D,25 Hydroxy 32.6 ng/mL
[2021-12-25 11:16] LABS: ALB/GLOB Ratio 1.2 RATIO (0.9-2.4); AST(SGOT) 21 U/L (15-37); Alanine Aminotransfer ALT/SGPT 34 U/L (16-61); Albumin, Serum 3.7 g/dL (3.2-5.0); Alkaline Phosphatase 72 U/L (45-117); Anion Gap 5 (5-15); BUN 12 mg/dL (7-18); BUN/Creat Ratio 11.9 RATIO (10-20); Calcium,Total 9.4 mg/dL (8.5-10.1); Chloride 108 mmol/L (98-107); Creatinine, Serum 1.01 mg/dL (0.70-1.30); EST Glomerular Filtration Rate 78 mL/min (>60); Est Glom Filt Rate - Afr Amer 95 mL/min (>60); Globulin 3.1 g/dL (2.2-4.2); Glucose 139 mg/dL (74-106); PSA,Total - Annual Screen 1.32 ng/mL (0.00-4.00); Potassium 3.8 mmol/L (3.5-5.1); Protein, Total 6.8 g/dL (6.4-8.2); Sodium Level 141 mmol/L (136-145); Thyroid Stim Hormone (TSH) 3.16 uIU/mL (0.358-3.74)
== END | disposition home or self-care (01) ==
PROVIDERS: PCP Family Medicine Geriatric Medicine; Referring Provider Family Medicine Geriatric Medicine; Visit Provider Family Medicine Geriatric Medicine
DX: E11.65 Type 2 diabetes mellitus with hyperglycemia (principal); E55.9 Vitamin D deficiency, unspecified; F52.8 Other sexual dysfunction not due to a substance or known physiological condition; I10 Essential (primary) hypertension; Z12.5 Encounter for screening for malignant neoplasm of prostate
CPT/HCPCS: 36415; 80053; 82306; 84153; 84403; 84443; 85025; G0103

== ENCOUNTER → 2022-06-24 | Outpatient (CLI) | payer MEDICARE, SELFPAY ==
[2022-06-24 12:45] LABS: Vitamin D,25 Hydroxy 15.4 ng/mL
[2022-06-24 12:47] LABS: Absolute Neutrophil Count 5.7 X10^3/uL (2.0-7.7); Basophil# 0.06 X10^3/uL; Basophil% 0.7 % (0-1); Eosinophil# 0.17 X10^3/uL; Eosinophils% 1.8 % (0-5); Hematocrit 45.4 % (40-54); Hemoglobin 15.2 g/dL (13.0-16.5); Lymphocyte % 28.2 % (19-41); Mean Corp Hgb Conc 33.5 g/dL (32-36); Mean Corpuscular Hgb 29.9 pg (27.0-32.0); Mean Corpuscular Volume 89.2 fL (80-94); Mean Platelet Vol. 11.6 fl (6.2-12.0); Monocyte# 0.66 X10^3/uL; Monocyte% 7.2 % (0-10); NRBC Flagged by Analyzer 0 % (0-5); Neutrophil # 5.69 X10^3/uL (2.7-7.7); Neutrophil % 61.8 % (47-70); Platelet Count 193 K/mm3 (150-450); RBC Distribution Width CV 13.8 % (11.6-14.6); RBC Distribution Width SD 45.2 fl (35.1-43.9); Red Blood Count 5.09 M/mm3 (4.6-6.2); White Blood Count 9.2 K/mm3 (4.4-11.0)
[2022-06-24 12:56] LABS: ALB/GLOB Ratio 1.1 RATIO (0.9-2.4); AST(SGOT) 33 U/L (15-37); Alanine Aminotransfer ALT/SGPT 50 U/L (16-61); Albumin, Serum 3.7 g/dL (3.2-5.0); Alkaline Phosphatase 76 U/L (45-117); Anion Gap 9 (5-15); BUN 12 mg/dL (7-18); BUN/Creat Ratio 10.7 RATIO (10-20); Calcium,Total 9.4 mg/dL (8.5-10.1); Chloride 104 mmol/L (98-107); Creatinine, Serum 1.12 mg/dL (0.70-1.30); EST Glomerular Filtration Rate 69 mL/min (>60); Est Glom Filt Rate - Afr Amer 84 mL/min (>60); Globulin 3.4 g/dL (2.2-4.2); Glucose 203 mg/dL (74-106); Potassium 3.8 mmol/L (3.5-5.1); Protein, Total 7.1 g/dL (6.4-8.2); Sodium Level 140 mmol/L (136-145); Thyroid Stim Hormone (TSH) 2.55 uIU/mL (0.358-3.74)
== END | disposition home or self-care (01) ==
LOC: POLAB3 09:31
PROVIDERS: PCP Family Medicine Geriatric Medicine; Visit Provider Family Medicine Geriatric Medicine
DX: E11.65 Type 2 diabetes mellitus with hyperglycemia (principal); I10 Essential (primary) hypertension; E55.9 Vitamin D deficiency, unspecified; F52.8 Other sexual dysfunction not due to a substance or known physiological condition
CPT/HCPCS: 36415; 80053; 82306; 84403; 84443; 85025

== ENCOUNTER → 2022-12-30 | Outpatient (CLI) | payer MEDICARE, SELFPAY ==
[2022-12-30 10:41] LABS: Absolute Lymphocyte Count 2.49 X10^3/uL (0.83-4.51); Basophil# 0.06 X10^3/uL; Basophil% 0.6 % (0-1); Eosinophil# 0.17 X10^3/uL; Eosinophils% 1.8 % (0-5); Hematocrit 43.7 % (40-54); Hemoglobin 14.8 g/dL (13.0-16.5); Lymphocyte # 2.49 X10^3/ul (0.83-4.51); Mean Corp Hgb Conc 33.9 g/dL (32-36); Mean Corpuscular Hgb 29.8 pg (27.0-32.0); Mean Corpuscular Volume 87.9 fL (80-94); Mean Platelet Vol. 11.1 fl (6.2-12.0); Monocyte# 0.86 X10^3/uL; NRBC Flagged by Analyzer 0 % (0-5); Neutrophil # 5.96 X10^3/uL (2.7-7.7); Neutrophil % 62.1 % (47-70); Platelet Count 200 K/mm3 (150-450); RBC Distribution Width CV 13.8 % (11.6-14.6); RBC Distribution Width SD 44.3 fl (35.1-43.9); Red Blood Count 4.97 M/mm3 (4.6-6.2); White Blood Count 9.6 K/mm3 (4.4-11.0)
[2022-12-30 11:21] LABS: Vitamin D,25 Hydroxy 36.6 ng/mL
[2022-12-30 11:29] LABS: ALB/GLOB Ratio 1.2 RATIO (0.9-2.4); AST(SGOT) 28 U/L (15-37); Alanine Aminotransfer ALT/SGPT 39 U/L (16-61); Albumin, Serum 3.6 g/dL (3.2-5.0); Alkaline Phosphatase 76 U/L (45-117); Anion Gap 6 (5-15); BUN 9 mg/dL (7-18); BUN/Creat Ratio 8.7 RATIO (10-20); Calcium,Total 8.9 mg/dL (8.5-10.1); Chloride 106 mmol/L (98-107); Creatinine, Serum 1.03 mg/dL (0.70-1.30); EST Glomerular Filtration Rate 76 mL/min (>60); Est Glom Filt Rate - Afr Amer 92 mL/min (>60); Globulin 3.1 g/dL (2.2-4.2); Glucose 155 mg/dL (74-106); PSA,Total - Annual Screen 0.74 ng/mL (0.00-4.00); Potassium 3.5 mmol/L (3.5-5.1); Protein, Total 6.7 g/dL (6.4-8.2); Sodium Level 138 mmol/L (136-145); Thyroid Stim Hormone (TSH) 2.63 uIU/mL (0.358-3.74)
== END | disposition home or self-care (01) ==
LOC: POLAB3 09:04
PROVIDERS: PCP Family Medicine Geriatric Medicine; Visit Provider Family Medicine Geriatric Medicine
DX: E11.65 Type 2 diabetes mellitus with hyperglycemia (principal); I10 Essential (primary) hypertension; Z12.5 Encounter for screening for malignant neoplasm of prostate; E55.9 Vitamin D deficiency, unspecified
CPT/HCPCS: 36415; 80053; 82306; 84153; 84443; 85025; G0103

== ENCOUNTER → 2023-06-29 | Outpatient (CLI) | payer BC, MEDICARE, SELFPAY ==
--- OUTSIDE RECORDS SUMMARY | 2023-06-29 10:54 | XMS RPT_ITS | CCD ---
Author Name Unknown Address [address] [place] [address] Organization [facility] Results Test Name Value Interpretation Reference Range Facil ity Summary Purpose Family History No Family History Records Found Advance Directives No Advanced Directives Records Found Additional Source Comments (unrecognized sect ion and content) No Status Records Found INFORMATION SOURCE (unrecogn ized section and content) FOR RECORDS PERTAINING TO PATIENTS WHO ARE OR HAVE BEEN ENROLLED IN A CHEMICAL DEPENDENCY/SUBSTANCEABUSE PROGRAM, SOME INFORMATION MAY BE OMITTED. This clinical summary was aggregated from multiple sources. Caution should be exercised in using it in the provision of clinical care. This summary normalizes information from multiple sources, and as a consequence, information in this document may materially change the coding, format and clinical context of patient data. In addition, data may be omitted in some cases. CLINICAL DECISIONS SHOULD BE BASED ON THE PRIMARY CLINICAL RECORDS. [employer] provides no warranty or guarantee of the accuracy or completeness of information in this document.
[2023-06-29 11:38] LABS: Absolute Lymphocyte Count 2.43 X10^3/uL (0.83-4.51); Absolute Neutrophil Count 5.7 X10^3/uL (2.0-7.7); Basophil# 0.07 X10^3/uL; Basophil% 0.8 % (0-1); Eosinophil# 0.22 X10^3/uL; Eosinophils% 2.4 % (0-5); Hematocrit 43.7 % (40-54); Hemoglobin 14.2 g/dL (13.0-16.5); Lymphocyte # 2.43 X10^3/ul (0.83-4.51); Lymphocyte % 26.2 % (19-41); Mean Corp Hgb Conc 32.5 g/dL (32-36); Mean Corpuscular Hgb 28.6 pg (27.0-32.0); Mean Corpuscular Volume 88.1 fL (80-94); Mean Platelet Vol. 11.7 fl (6.2-12.0); Monocyte# 0.81 X10^3/uL; Monocyte% 8.7 % (0-10); NRBC Flagged by Analyzer 0 % (0-5); Neutrophil # 5.73 X10^3/uL (2.7-7.7); Neutrophil % 61.6 % (47-70); Platelet Count 199 K/mm3 (150-450); RBC Distribution Width CV 13.4 % (11.6-14.6); RBC Distribution Width SD 43.3 fl (35.1-43.9); Red Blood Count 4.96 M/mm3 (4.6-6.2); White Blood Count 9.3 K/mm3 (4.4-11.0)
[2023-06-29 11:55] LABS: Vitamin D,25 Hydroxy 27.5 ng/mL
[2023-06-29 12:01] LABS: ALB/GLOB Ratio 1.2 RATIO (0.9-2.4); AST(SGOT) 23 U/L (15-37); Alanine Aminotransfer ALT/SGPT 37 U/L (16-61); Albumin, Serum 3.6 g/dL (3.2-5.0); Alkaline Phosphatase 77 U/L (45-117); Anion Gap 5 (5-15); BUN 10 mg/dL (7-18); BUN/Creat Ratio 9.9 RATIO (10-20); Calcium,Total 9.1 mg/dL (8.5-10.1); Chloride 106 mmol/L (98-107); Creatinine, Serum 1.01 mg/dL (0.70-1.30); EST Glomerular Filtration Rate 78 mL/min (>60); Est Glom Filt Rate - Afr Amer 94 mL/min (>60); Globulin 2.9 g/dL (2.2-4.2); Glucose 195 mg/dL (74-106); Potassium 3.5 mmol/L (3.5-5.1); Protein, Total 6.5 g/dL (6.4-8.2); Sodium Level 139 mmol/L (136-145); Thyroid Stim Hormone (TSH) 3.06 uIU/mL (0.358-3.74)
== END | disposition home or self-care (01) ==
PROVIDERS: PCP Family Medicine Geriatric Medicine; Visit Provider Family Medicine Geriatric Medicine
DX: E11.65 Type 2 diabetes mellitus with hyperglycemia (principal); I10 Essential (primary) hypertension; E55.9 Vitamin D deficiency, unspecified; Z12.5 Encounter for screening for malignant neoplasm of prostate
CPT/HCPCS: 36415; 80053; 82306; 84443; 85025

== ENCOUNTER → 2023-12-29 | Outpatient (CLI) | payer BC, MEDICARE, SELFPAY ==
[2023-12-29 10:38] LABS: Absolute Lymphocyte Count 2.62 X10^3/uL (0.83-4.51); Absolute Neutrophil Count 6.1 X10^3/uL (2.0-7.7); Basophil# 0.05 X10^3/uL; Basophil% 0.5 % (0-1); Eosinophil# 0.17 X10^3/uL; Eosinophils% 1.7 % (0-5); Hematocrit 42.7 % (40-54); Hemoglobin 14.1 g/dL (13.0-16.5); Lymphocyte # 2.62 X10^3/ul (0.83-4.51); Mean Corpuscular Hgb 28.9 pg (27.0-32.0); Mean Corpuscular Volume 87.5 fL (80-94); Mean Platelet Vol. 11.2 fl (6.2-12.0); Monocyte# 0.79 X10^3/uL; Monocyte% 8.1 % (0-10); NRBC Flagged by Analyzer 0 % (0-5); Neutrophil # 6.05 X10^3/uL (2.7-7.7); Neutrophil % 62.3 % (47-70); Platelet Count 192 K/mm3 (150-450); RBC Distribution Width CV 14.3 % (11.6-14.6); RBC Distribution Width SD 45.9 fl (35.1-43.9); Red Blood Count 4.88 M/mm3 (4.6-6.2); White Blood Count 9.7 K/mm3 (4.4-11.0)
[2023-12-29 11:00] LABS: Vitamin D,25 Hydroxy 26.5 ng/mL
[2023-12-29 11:11] LABS: Hemoglobin A1c 7.1 % (3.8-5.6)
[2023-12-29 11:13] LABS: ALB/GLOB Ratio 1.2 RATIO (0.9-2.4); AST(SGOT) 26 U/L (15-37); Alanine Aminotransfer ALT/SGPT 37 U/L (16-61); Albumin, Serum 3.7 g/dL (3.2-5.0); Alkaline Phosphatase 76 U/L (45-117); Anion Gap 4 (5-15); BUN 10 mg/dL (7-18); BUN/Creat Ratio 9.5 RATIO (10-20); Calcium,Total 9.3 mg/dL (8.5-10.1); Chloride 107 mmol/L (98-107); Creatinine, Serum 1.05 mg/dL (0.70-1.30); EST Glomerular Filtration Rate 74 mL/min (>60); Est Glom Filt Rate - Afr Amer 90 mL/min (>60); Globulin 3.2 g/dL (2.2-4.2); Glucose 149 mg/dL (74-106); Potassium 3.8 mmol/L (3.5-5.1); Protein, Total 6.9 g/dL (6.4-8.2); Sodium Level 140 mmol/L (136-145)
== END | disposition home or self-care (01) ==
LOC: POLAB3 10:21
PROVIDERS: PCP Family Medicine Geriatric Medicine; Visit Provider Family Medicine Geriatric Medicine
DX: E11.65 Type 2 diabetes mellitus with hyperglycemia (principal); I10 Essential (primary) hypertension; E55.9 Vitamin D deficiency, unspecified
CPT/HCPCS: 36415; 80053; 82306; 83036; 84443; 85025

== ENCOUNTER → 2024-07-02 | Outpatient (CLI) | payer MEDICARE, SELFPAY ==
[2024-07-02 09:41] LABS: Absolute Neutrophil Count 6.8 X10^3/uL (2.0-7.7); Basophil# 0.07 X10^3/uL; Basophil% 0.6 % (0-1); Eosinophil# 0.23 X10^3/uL; Eosinophils% 2.1 % (0-5); Hematocrit 44.9 % (40-54); Hemoglobin 15.1 g/dL (13.0-16.5); Lymphocyte % 28.7 % (19-41); Mean Corp Hgb Conc 33.6 g/dL (32-36); Mean Corpuscular Hgb 29.7 pg (27.0-32.0); Mean Corpuscular Volume 88.4 fL (80-94); Monocyte# 0.84 X10^3/uL; Monocyte% 7.5 % (0-10); NRBC Flagged by Analyzer 0 % (0-5); Neutrophil # 6.78 X10^3/uL (2.7-7.7); Neutrophil % 60.8 % (47-70); Platelet Count 211 K/mm3 (150-450); RBC Distribution Width CV 13.9 % (11.6-14.6); RBC Distribution Width SD 45.1 fl (35.1-43.9); Red Blood Count 5.08 M/mm3 (4.6-6.2); White Blood Count 11.2 K/mm3 (4.4-11.0)
[2024-07-02 10:39] LABS: PSA,Total - Annual Screen 1.02 ng/mL (0.02-4.00); Vitamin D,25 Hydroxy 15.5 ng/mL (30-100)
[2024-07-02 10:45] LABS: Microalbumin:Creatinine Ratio 148.4 mg/g CRE
[2024-07-02 11:08] LABS: ALB/GLOB Ratio 1.3 RATIO (0.9-2.4); AST(SGOT) 30 U/L (<=37); Alanine Aminotransfer ALT/SGPT 22 U/L (<=46); Albumin, Serum 3.8 g/dL (3.4-4.8); Alkaline Phosphatase 72 U/L (40-129); Anion Gap 15 (5-15); BUN 10 mg/dL (4-19); BUN/Creat Ratio 9.6 RATIO (10-20); Calcium 9.1 mg/dL (7.6-11.0); Carbon Dioxide 22.3 mmol/L (22.0-29.0); Chloride 102 mmol/L (96-108); Creatinine, Serum 1.05 mg/dL (0.70-1.20); EST Glomerular Filtration Rate 77 (>60); Globulin 2.9 g/dL (2.2-4.2); Glucose 167 mg/dL (70-99); Potassium 3.9 mmol/L (3.3-5.1); Protein, Total 6.8 g/dL (5.9-8.4); Sodium Level 140 mmol/L (133-145); Total Bilirubin 0.55 mg/dL (0.00-1.30)
== END | disposition home or self-care (01) ==
PROVIDERS: PCP Family Medicine Geriatric Medicine; Visit Provider Family Medicine Geriatric Medicine
DX: E11.65 Type 2 diabetes mellitus with hyperglycemia (principal); I10 Essential (primary) hypertension; E55.9 Vitamin D deficiency, unspecified; Z12.5 Encounter for screening for malignant neoplasm of prostate
CPT/HCPCS: 36415; 80053; 82043; 82306; 82570; 84153; 84443; 85025; G0103

== ENCOUNTER → 2024-10-03 | Outpatient (CLI) | payer MEDICARE, SELFPAY ==
[2024-10-03 11:04] LABS: Absolute Lymphocyte Count 2.21 X10^3/uL (0.83-4.51); Absolute Neutrophil Count 7.4 X10^3/uL (2.0-7.7); Basophil# 0.06 X10^3/uL; Basophil% 0.6 % (0-1); Eosinophil# 0.17 X10^3/uL; Eosinophils% 1.6 % (0-5); Hematocrit 43.6 % (40-54); Hemoglobin 14.7 g/dL (13.0-16.5); Lymphocyte # 2.21 X10^3/ul (0.83-4.51); Lymphocyte % 20.6 % (19-41); Mean Corp Hgb Conc 33.7 g/dL (32-36); Mean Corpuscular Hgb 29.7 pg (27.0-32.0); Mean Corpuscular Volume 88.1 fL (80-94); Mean Platelet Vol. 11.2 fl (6.2-12.0); Monocyte# 0.85 X10^3/uL; Monocyte% 7.9 % (0-10); NRBC Flagged by Analyzer 0 % (0-5); Neutrophil # 7.38 X10^3/uL (2.7-7.7); Neutrophil % 68.8 % (47-70); Platelet Count 186 K/mm3 (150-450); RBC Distribution Width CV 14.1 % (11.6-14.6); RBC Distribution Width SD 45.1 fl (35.1-43.9); Red Blood Count 4.95 M/mm3 (4.6-6.2); White Blood Count 10.7 K/mm3 (4.4-11.0)
--- OUTSIDE RECORDS SUMMARY | 2024-10-03 11:44 | XMS RPT_ITS | CCD ---
Author Organization [facility] Care Team Providers Care Battery Loader Name Role Phone William Arnold Chi Primary Care Provider Dr. William Arnold MD, Chi Primary Care Provider [phone] Dr. William Arnold MD, Chi Attending Provider William Arnold Chi Attending Unavailable William Arnold Chi Primary Care Unavailable William Arnold Chi Attending Unavailable William Arnold [facility] Primary Care Unavailable Allergies Allergy Classification Reported Allergen(s) Allergy Type Date of Onset Reaction(s) Facility (1 source) ALLERGIES NOT ON FILE; Translations: [ALLERGIES NOT ON FILE] Propensity to adverse reactions (disorder) [facility] Medications Current Medications Medication Drug Class(es) Dates Sig (Normalized) Sig (Original) atorvastatin 40 mg oral tablet (2 sources) HMG-CoA Reductase Inhibitor take 1 tablet by mouth once daily atorvastatin (LIPITOR) 40 mg tablet Take 40 mg by mouth once daily. 0 Active cephalexin 500 mg oral capsule (4 sources) Cephalosporin Antibacterial Start: 03-09-20 21 take 1 capsule by mouth every six hours Cephalexin 500 mg capsule Active 500 mg PO EVERY 6 HOURS 40 March 09, 2021 1:00am hydroCHLOROthiazide 25 mg oral tablet (6 sources) Thiazide Diuretic Start: 03-09-20 21 take 1 tablet by mouth once daily hydroCHLOROthiazide 25 mg tablet TAKE 1 TABLET ORALLY ONCE PER DAY FOR 90 DAYS 0 08/13/2023 Active hydroCHLOROthiazide 25 mg / irbesartan 300 mg oral tablet (2 sources) Thiazide Diuretic, Angiotensin 2 Receptor Juanjo Start: 08-04-19 07 AVALIDE 300 MG-25 MG TAB Take one(1) tablet daily. 0 08/03/2006 Active hydroCHLOROthiazide 25 mg / olmesartan medoxomil 40 mg oral tablet (2 sources) Thiazide Diuretic, Angiotensin 2 Receptor Ujanjo Start: 07-18-20 16 BENICAR HCT 40-25 mg per tablet losartan potassium 100 mg oral tablet (6 sources) Angiotensin 2 Receptor Juanjo Start: 03-09-20 21 take 1 tablet by mouth once daily losartan (COZAAR) 100 mg tablet TAKE 1 TABLET ORALLY ONCE PER DAY FOR 30 DAYS 0 09/13/2023 Active metFORMIN hydrochloride 1000 mg oral tablet (6 sources) Biguanide Start: 03-09-20 21 take 1 tablet by mouth twice daily metFORMIN (GLUCOPHAGE) 1,000 mg tablet TAKE 1 TABLET BY MOUTH TWICE A DAY [id number] 09/13/2023 Active metoprolol tartrate 25 mg oral tablet (6 sources) beta-Adrenergic Juanjo Start: 08-24-19 17 take 1 tablet by mouth twice daily metoprolol tartrate, short acting, (LOPRESSOR) 25 mg tablet TAKE 1 TABLET BY MOUTH TWICE A DAY [id number] 0 08/13/2023 Active nebivolol 5 mg oral tablet (2 sources) take 1 tablet by mouth once daily nebivolol (BYSTOLIC) 5 mg ORAL tablet Take 5 mg by mouth once daily. 0 Active nitrofurantoin, macrocrystals 25 mg / nitrofurantoin, monohydrate 75 mg oral capsule (2 sources) Nitrofuran Antibacterial Start: 10-03-19 End: 10-08-19 24 take 1 capsule by mouth twice daily nitrofurantoin monohydrate and macrocrystal (MACROBID) 100 mg capsule Indications: Burning with urination Take 1 capsule by mouth two times a day for 5 days. 10 capsule 0 10/03/2023 10/08/2023 Active olmesartan (2 sources) Angiotensin 2 Receptor Juanjo OLMESARTAN MEDOXOMIL (BENICAR ORAL) Take by mouth. 0 Active pioglitazone 30 mg oral tablet (6 sources) Peroxisome Proliferator Receptor alpha Agonist, Peroxisome Proliferator Receptor gamma Agonist, Thiazolidinedione Start: 03-09-20 21 take 1 tablet by mouth once pioglitazone (ACTOS) 30 mg tablet Take 1 tablet by mouth every afternoon. 0 09/13/2023 Active pravastatin sodium 80 mg oral tablet (6 sources) HMG-CoA Reductase Inhibitor Start: 03-09-20 21 take 1 tablet by mouth once daily at bedtime pravastatin (PRAVACHOL) 80 mg tablet TAKE ONE TABLET BY MOUTH EVERYDAY AT BEDTIME FOR 90 DAYS 0 09/13/2023 Active Completed/Discontinued Medications Medication Drug Class(es) Dates Sig (Normalized) Sig (Original) acetaminophen 325 mg / HYDROcodone bitartrate 5 mg oral tablet (4 sources) Opioid Agonist Start: 12-11-2015 End: 12-11-2015 Hydrocodone-Acetami nophen 1 TABLET tablet Discontinued 1 - 2 {tbl} PO EVERY 4 HOURS NEEDED as needed for Pain December 11, 2015 12:00am December 11, 2015 10:31am Start: 12-11-2015 End: 12-11-2015 take 1 tablet by mouth every four hours as needed Hydrocodone-Acetaminophen Discontinued 1 - 2 TABLET PO EVERY 4 HOURS NEEDED December 10, 2015 11:00pm December 11, 2015 9:31am Problems Problem Classification Problem Date Documented Da te Episodic/Chronic Diabetes mellitus with complications (1 source) Type 2 diabetes mellitus with hyperglycemia; Translations: [Type 2 diabetes mellitus with hyperglycemia] Onset: 08-03-2024 Chronic Genitourinary symptoms and ill-defined conditions (2 sources) Scalding pain on urination ; Translations: [Dysuria] 10-03-2023 Episodic Other connective tissue disease (4 sources) Pain in lower limb; Translations: [Pain in left leg] 03-17-2021 Episodic Skin and subcutaneous tissue infections (4 sources) Cellulitis of leg, excluding foot; Translations: [Cellulitis of left lower limb] 03-17-2021 Episodic Urinary tract infections (1 source) Acute cystitis; Translations: [Acute cystitis with hematuria] 10-03-2023 Episodic Results Test Name Value Interpretation Reference Range Facility Absolute neutrophil countOrd ered By: William Arnold on 07-02-2024 Neutrophils (Bld) [#/Vol] 6.8 10*3/uL 2.0-7.7 [facility] Albumin DL <= 20 mg/L (U) [M ass/Vol]Ordered By: William Arnold on 07-02-2024 Urine Random Microalbumin 23.0 mg/L NO RANGE EST. [facility] BUN/creatinine ratioOrdered By: William Arnold on 07-02-2024 Urea nitrogen/Creatinine [Mass ratio] 9.6 mg/mg Low 10-20 [facility] Basophil percentageOrdered B y: William Arnold on 07-02-2024 Basophils/100 WBC (Bld) 0.6 % 0-1 [facility] Bilirubin, totalOrdered By: William Arnold on 07-02-2024 Bilirubin [Mass/Vol] 0.55 mg/dL 0.00-1.30 [facility] CBC W/Diff, Automatedon Absolute Lymph 3.20 X10 3/uL Normal 0.83-4.51 [facility] Comment on above: Performed By: #### L 501.9910, L100.0100, L500.4050, L506.1001, L501.9520 #### [facility] [address] [place], [address] Absolute Neut 6.8 X10 3/uL Normal 2.0-7.7 [facility] Comment on above: Performed By: #### L [id number], L100.0100, L500.4050, L506.1001, L501.9520 #### [facility] [address] [place], [address] Basophils/100 WBC (Bld) 0.6 % Normal 0-1 [facility] Comment on above: Performed By: #### L [id number], L100.0100, L500.4050, L506.1001, L501.9520 #### [facility] [address] [place], [address] Eosinophils/100 WBC (Bld) 2.1 % Normal 0-5 [facility] Comment on above: Performed By: #### L [id number], L100.0100, L500.4050, L506.1001, [id number] #### [facility] [address] [place], [address] Erythrocyte distribution width (RBC) [Ratio] 13.9 % Normal 11.6-14.6 [facility] Comment on above: Performed By: #### L [id number], L100.0100, L500.4050, L506.1001, L501.9520 #### [facility] [address] [place], [address] Hematocrit (Bld) [Volume fraction] 44.9 % Normal 40-54 [facility] Comment on above: Performed By: #### L 501.9910, L100.0100, L500.4050, L506.1001, L501.9520 #### [facility] [address] [place], [address] Hemoglobin (Bld) [Mass/Vol] 15.1 g/dL Normal 13.0-16.5 [facility] Comment on above: Performed By: #### L 501.9910, L100.0100, L500.4050, L506.1001, L501.9520 #### [facility] [address] [place], [address] IG% 0.300 Normal 0.0-0.9 [facility] Comment on above: Result Comment: IG% - Immature Granulocytes (promyelocytes, myelocytes and metamyelocytes) > 1% indicates that a LEFT SHIFT is Present. Performed By: #### L 501.9910, L100.0100, L500.4050, L506.1001, L501.9520 #### [facility] [address] [place], [address] Lymphocytes/100 WBC (Bld) 28.7 % Normal 19-41 [facility] Comment on above: Performed By: #### L 501.9910, L100.0100, L500.4050, L506.1001, L501.9520 #### [facility] [address] [place], [address] MCH (RBC) [Entitic mass] 29.7 pg Normal 27.0-32.0 [facility] Comment on above: Performed By: #### L 501.9910, L100.0100, L500.4050, L506.1001, L501.9520 #### [facility] [address] [place], [address] MCHC (RBC) [Mass/Vol] 33.6 g/dL Normal 32-36 [facility] Comment on above: Performed By: #### L 501.9910, L100.0100, L500.4050, L506.1001, L501.9520 #### [facility] [address] [place], [address] MCV (RBC) [Entitic vol] 88.4 fL Normal 80-94 [facility] Comment on above: Performed By: #### L 501.9910, L100.0100, L500.4050, L506.1001, L501.9520 #### [facility] [address] [place], [address] Monocytes/100 WBC (Bld) 7.5 % Normal 0-10 [facility] Comment on above: Performed By: #### L 501.9910, L100.0100, L500.4050, L506.1001, L501.9520 #### [facility] [address] [place], [address] Neutrophils/100 WBC (Bld) 60.8 % Normal 47-70 [facility] Comment on above: Performed By: #### L 501.9910, L100.0100, L500.4050, L506.1001, L501.9520 #### [facility] [address] [place], [address] Nucleated RBC (Bld) [#/Vol] 0 10*3/uL Normal 0-5 [facility] Comment on above: Performed By: #### L 501.9910, L100.0100, L500.4050, L506.1001, L501.9520 #### [facility] [address] [place], [address] Platelet mean volume (Bld) [Entitic vol] 11.0 fL Normal 6.2-12.0 [facility] Comment on above: Performed By: #### L 501.9910, L100.0100, L500.4050, L506.1001, L501.9520 #### [facility] [address] [place], [address] Platelets (Bld) [#/Vol] 211 10*3/uL Normal 150-450 [facility] Comment on above: Performed By: #### L 501.9910, L100.0100, L500.4050, L506.1001, L501.9520 #### [facility] [address] [place], [address] RBC (Bld) [#/Vol] 5.08 10*6/uL Normal 4.6-6.2 [facility] Comment on above: Performed By: #### L 501.9910, L100.0100, L500.4050, L506.1001, L501.9520 #### [facility] [address] [place], [address] RDW SD 45.1 fl High 35.1-43.9 [facility] Comment on above: Performed By: #### L 501.9910, L100.0100, L500.4050, L506.1001, L501.9520 #### [facility] [address] [place], [address] WBC (Bld) [#/Vol] 11.2 10*3/uL High 4.4-11.0 [facility] Comment on above: Performed By: #### L 501.9910, L100.0100, L500.4050, L506.1001, L501.9520 #### [facility] [address] [place], [address] Carbon dioxide measurementOr dered By: William Arnold on 07-02-2024 CO2 [Moles/Vol] 22.3 mmol/L 22.0-29.0 [facility] Chloride measurementOrdered By: William Arnold on 07-02-2024 Chloride [Moles/Vol] 102 mmol/L 96-108 [facility] Comprehensive Metabolic Prof ilon 07-02-2024 Albumin [Mass/Vol] 3.8 g/dL Normal 3.4-4.8 [facility] Comment on above: Performed By: #### L 501.9910, L100.0100, L500.4050, L506.1001, L501.9520 #### [facility] [address] [place], [address] Albumin/Globulin [Mass ratio] 1.3 {ratio} Normal 0.9-2.4 [facility] Comment on above: Performed By: #### L 501.9910, L100.0100, L500.4050, L506.1001, L501.9520 #### [facility] [address] [place], [address] ALK PHOS 72 U/L Normal 40-129 [facility] Comment on above: Performed By: #### L 501.9910, L100.0100, L500.4050, L506.1001, L501.9520 #### [facility] [address] [place], [address] ALT [Catalytic activity/Vol] 22 U/L Normal <=46 [facility] Comment on above: Performed By: #### L 501.9910, L100.0100, L500.4050, L506.1001, L501.9520 #### [facility] [address] [place], [address] Anion gap [Moles/Vol] 15 mmol/L Normal 5-15 [facility] Comment on above: Performed By: #### L 501.9910, L100.0100, L500.4050, L506.1001, L501.9520 #### [facility] [address] [place], [address] AST [Catalytic activity/Vol] 30 U/L Normal <=37 [facility] Comment on above: Result Comment: Hemo lysis present, Results??could be affected. ?? Performed By: #### L 501.9910, L100.0100, L500.4050, L506.1001, L501.9520 #### [facility] [address] [place], [address] Bilirubin [Mass/Vol] 0.55 mg/dL Normal 0.00-1.30 [facility] Comment on above: Performed By: #### L 501.9910, L100.0100, L500.4050, L506.1001, L501.9520 #### [facility] [address] [place], [address] BUN/CRE 9.6 RATIO Low 10-20 [facility] Comment on above: Performed By: #### L 501.9910, L100.0100, L500.4050, L506.1001, L501.9520 #### [facility] [address] [place], [address] Calcium [Mass/Vol] 9.1 mg/dL Normal 7.6-11.0 [facility] Comment on above: Performed By: #### L 501.9910, L100.0100, L500.4050, L506.1001, L501.9520 #### [facility] [address] [place], [address] Chloride [Moles/Vol] 102 mmol/L Normal 96-108 [facility] Comment on above: Performed By: #### L 501.9910, L100.0100, L500.4050, L506.1001, L501.9520 #### [facility] [address] [place], [address] CO2 [Moles/Vol] 22.3 mmol/L Normal 22.0-29.0 [facility] Comment on above: Performed By: #### L 501.9910, L100.0100, L500.4050, L506.1001, L501.9520 #### [facility] [address] [place], [address] Creatinine [Mass/Vol] 1.05 mg/dL Normal 0.70-1.20 [facility] Comment on above: Performed By: #### L 501.9910, L100.0100, L500.4050, L506.1001, L501.9520 #### [facility] [address] [place], [address] GFR/1.73 sq M.predicted among non-blacks MDRD (S/P/Bld) [Vol rate/Area] 77 mL/min/{1.73_m2} Normal >60 [facility] Comment on above: Result Comment: mL/m in/1.73m2 CKD-EPI Creatinine Equation (2020) Performed By: #### L 501.9910, L100.0100, L500.4050, L506.1001, L501.9520 #### [facility] [address] [place], [address] Globulin (S) [Mass/Vol] 2.9 g/dL Normal 2.2-4.2 [facility] Comment on above: Performed By: #### L 501.9910, L100.0100, L500.4050, L506.1001, L501.9520 #### [facility] [address] [place], [address] Glucose [Mass/Vol] 167 mg/dL High 70-99 [facility] Comment on above: Performed By: #### L 501.9910, L100.0100, L500.4050, L506.1001, L501.9520 #### [facility] [address] [place], [address] Potassium [Moles/Vol] 3.9 mmol/L Normal 3.3-5.1 [facility] Comment on above: Result Comment: Hemo lysis present, Results??could be affected. ?? Performed By: #### L 501.9910, L100.0100, L500.4050, L506.1001, L501.9520 #### [facility] [address] [place], [address] Sodium [Moles/Vol] 140 mmol/L Normal 133-145 [facility] Comment on above: Performed By: #### L 501.9910, L100.0100, L500.4050, L506.1001, L501.9520 #### [facility] [address] [place], [address] T PROT 6.8 g/dL Normal 5.9-8.4 [facility] Comment on above: Performed By: #### L 501.9910, L100.0100, L500.4050, L506.1001, L501.9520 #### [facility] [address] [place], [address] Urea nitrogen [Mass/Vol] 10 mg/dL Normal 4-19 [facility] Comment on above: Performed By: #### L 501.9910, L100.0100, L500.4050, L506.1001, L501.9520 #### [facility] [address] [place], [address] Creatinine Unsp time (U) [Ma ss/Vol]Ordered By: William Arnold on 07-02-2024 Creatinine (U) [Mass/Vol] 155.00 mg/dL 39-259 [facility] Eosinophil percentageOrdered By: William Arnold on 07-02-2024 Eosinophils/100 WBC (Bld) 2.1 % 0-5 [facility] Erythrocyte distribution wid th ratioOrdered By: William Arnold on 07-02-2024 Erythrocyte distribution width (RBC) [Ratio] 13.9 % 11.6-14.6 [facility] Erythrocyte distribution wid th standard deviationOrdered By: William Arnold on 07-02-2024 Erythrocyte distribution width (RBC) [Entitic vol] 45.1 fL High 35.1-43.9 [facility] GFR/1.73 sq M.predicted raj g non-blacks MDRD (S/P/Bld) [Vol rate/Area]Ordered By: William Arnold on 07-02-2024 Estimated GFR (MDRD) Non-Af Amer 77 >60 [facility] Comment on above: mL/min/1.73m2 CKD-EP I Creatinine Equation (2020) Hematocrit Auto (Bld) [Volum e fraction]Ordered By: William Arnold on 07-02-2024 Hematocrit (Bld) [Volume fraction] 44.9 % 40-54 [facility] Hemoglobin measurementOrdere d By: William Arnold on 07-02-2024 Hemoglobin (Bld) [Mass/Vol] 15.1 g/dL 13.0-16.5 [facility] Immature granulocytes/100 WB C Auto (Bld)Ordered By: William Clayton 07-02-2024 Immature granulocytes/100 WBC (Bld) 0.300 % 0.0-0.9 [facility] Comment on above: IG% - Immature Granu locytes (promyelocytes, myelocytes and metamyelocytes) > 1% indicates that a LEFT SHIFT is Present. L506.1001on 07-02-2024 Vitamin D 25-OH 15.5 ng/mL Low 30-100 [facility] Comment on above: Result Comment: Nicole min D Status Deficiency: <20 ng/mL (50nmol/L) Insufficiency: 20-30 ng/mL (50-75 nmol/L) Sufficiency: 30-100 ng/mL (75-250 nmol/L) Toxicity: >100 ng/mL (>250 nmol/L) Performed By: #### L 501.9910, L100.0100, L500.4050, L506.1001, L501.9520 #### [facility] [place], [address] Laboratory - Chemistry and C hemistry - challengeOrdered By: William Caraballook on 07-02-2024 AST [Catalytic activity/Vol] 30 U/L <38 [facility] Comment on above: Hemolysis present, R esults could be affected. Lymphocytes Auto (Unsp spec) [#/Vol]Ordered By: William Caraballook on 07-02-2024 Lymphocytes (Bld) [#/Vol] 3.20 10*3/uL 0.83-4.51 [facility] Lymphocytes/100 WBC Auto (Un sp spec)Ordered By: William Clayton on 07-02-2024 Lymphocytes/100 WBC (Bld) 28.7 % 19-41 [facility] MCV (mean corpuscular volume ) determinationOrdered By: William Caraballook on 07-02-2024 MCV (RBC) [Entitic vol] 88.4 fL 80-94 [facility] Mean corpuscular hemoglobin (MCH) determinationOrdered By: William Caraballook on 07-02-2024 MCH (RBC) [Entitic mass] 29.7 pg 27.0-32.0 [facility] Mean corpuscular hemoglobin concentration (MCHC) determinationOrdered By: William Caraballook on 07-02-2024 MCHC (RBC) [Mass/Vol] 33.6 g/dL 32-36 [facility] Mean platelet volume determi nationOrdered By: William Clayton on 07-02-2024 Platelet mean volume (Bld) [Entitic vol] 11.0 fL 6.2-12.0 [facility] Microalb:Creat Ratio,Random URon 07-02-2024 Creatinine [Mass/Vol] 155.00 mg/dL Normal 39-259 [facility] Comment on above: Performed By: #### L 502.0250 #### [facility] [address] [place], [address] MALB:CREAT 148.4 mg/g CRE Normal [facility] Comment on above: Performed By: #### L 502.0250 #### [facility] [address] [place], [address] MICROALBUMIN,UR 23.0 mg/L Normal NO RANGE EST. [facility] Comment on above: Performed By: #### L 502.0250 #### [facility] [address] [place], [place], [address] Microalbumin/creat ratio urO rdered By: William Arnold on 07-02-2024 Urine Microalbumin/Creatinine Ratio 148.4 mg/g CRE [facility] Monocyte percentageOrdered B y: William Arnold on 07-02-2024 Monocytes/100 WBC (Bld) 7.5 % 0-10 [facility] Neutrophil [facility]Ordered [facility] Neutrophils/100 WBC (Bld) 60.8 % 47-70 [facility] Nucleated red blood cell per centageOrdered By: William Clayton on 07-02-2024 Nucleated RBC/100 WBC (Bld) [Ratio] 0 % 0-5 [facility] PSA, total screeningOrdered By: William Arnold on 07-02-2024 Prostate Specific Antigen Screen 1.02 ng/mL 0.02-4.00 [facility] Comment on above: This test was perfor med using the [employer] tPSA method. Measured values of a patient sample can vary depending on the testing procedure used. PSA values determined on patient samples by different testing procedures cannot be used interchangeably. If there is a change in PSA assays while monitoring therapy, sequential testing should be performed to confirm baseline values. PSA,Total - Annual Screenon 07-02-2024 PSA,TOT SCREEN 1.02 ng/mL Normal 0.02-4.00 [facility] Comment on above: Result Comment: This test was performed using the [employer] tPSA method. Measured values of a patient??sample can vary depending on the testing procedure used. PSA values determined on patient samples by different testing procedures cannot be used interchangeably. If there is a change in PSA assays while monitoring therapy, sequential testing should be performed to confirm baseline values. Performed By: #### L 501.9910, L100.0100, L500.4050, L506.1001, L501.9520 #### [facility] [address] [place], [place], [address] Platelet countOrdered By: Ran Arnold on 07-02-2024 Platelets (Bld) [#/Vol] 211 10*3/uL 150-450 [facility] RBC Auto (Bld) [#/Vol]Ordere d By: William Arnold on 07-02-2024 RBC (Bld) [#/Vol] 5.08 10*6/uL 4.6-6.2 [facility] Serum creatinine measurement (mass/volume)Ordered By: William Arnold on 07-02-2024 Creatinine [Mass/Vol] 1.05 mg/dL 0.70-1.20 [facility] Serum globulin measurementOr dered By: William Arnold on 07-02-2024 Globulin (S) [Mass/Vol] 2.9 g/dL 2.2-4.2 [facility] Serum glucose measurement (m ass/volume)Ordered By: William Arnold on 07-02-2024 Glucose [Mass/Vol] 167 mg/dL High 70-99 [facility] Serum or plasma alanine kwan otransferase (ALT) measurementOrdered By: William Arnold on 07-02-2024 ALT [Catalytic activity/Vol] 22 U/L <47 [facility] Serum or plasma albumin aden urement (mass/volume)Ordered By: William Arnold on 07-02-2024 Albumin [Mass/Vol] 3.8 g/dL 3.4-4.8 [facility] Serum or plasma albumin/glob ulin mass ratioOrdered By: William Arnold 07-02-2024 Albumin/Globulin [Mass ratio] 1.3 {ratio} 0.9-2.4 [facility] Serum or plasma alkaline magy sphatase measurementOrdered By: William Arnold 07-02-2024 ALP [Catalytic activity/Vol] 72 U/L 40-129 [facility] Serum or plasma anion gap de termination (moles/volume)Ordered By: William Arnold on 07-02-2024 Anion gap [Moles/Vol] 15 mmol/L 5-15 [facility] Serum or plasma calcium aden urement (mass/volume)Ordered By: William Arnold on 07-02-2024 Calcium [Mass/Vol] 9.1 mg/dL 7.6-11.0 [facility] Serum or plasma potassium me asurementOrdered By: William Arnold on 07-02-2024 Potassium [Moles/Vol] 3.9 mmol/L 3.3-5.1 [facility] Comment on above: Hemolysis present, R esults could be affected. Serum or plasma sodium measu rement (moles/volume)Ordered By: William Arnold on 07-02-2024 Sodium [Moles/Vol] 140 mmol/L 133-145 [facility] Serum or plasma urea nitroge n measurement (mass/volume)Ordered By: William Arnold on 07-02-2024 Urea nitrogen [Mass/Vol] 10 mg/dL 4-19 [facility] TSH DL <= 0.005 mIU/L QnOrde red By: William Arnold on 07-02-2024 Thyroid Stimulating Hormone (TSH) 3.390 uIU/mL 0.300-4.200 [facility] Thyroid Stim Hormone (TSH)on 07-02-2024 TSH 3.390 uIU/mL Normal 0.300-4.200 [facility] Comment on above: Performed By: #### L 501.9910, L100.0100, L500.4050, L506.1001, L501.9520 #### [facility] [address] [place], [place], [address] Total proteinOrdered By: William Arnold on 07-02-2024 Protein [Mass/Vol] 6.8 g/dL 5.9-8.4 [facility] Vitamin D, 25-hydroxyOrdered By: William Arnold on 07-02-2024 Vitamin D 25-Hydroxy 15.5 ng/mL Low 30-100 [facility] Comment on above: Vitamin D StatusDefi ciency: <20 ng/mL (50nmol/L)Insufficiency: 20-30 ng/mL (50-75 nmol/L)Sufficiency: 30-100 ng/mL (75-250 nmol/L)Toxicity: >100 ng/mL (>250 nmol/L) White blood cell (WBC) count Ordered By: William Arnold on 07-02-2024 WBC (Bld) [#/Vol] 11.2 10*3/uL High 4.4-11.0 [facility] CBC W/Diff, Automatedon 08-2 Absolute Lymph 2.62 X10 3/uL Normal 0.83-4.51 [facility] Comment on above: Performed By: #### L 501.9520, L506.1000, L100.0100, L501.9985, L500.4050 #### [facility] [address] [place], [address] Absolute Neut 6.1 X10 3/uL Normal 2.0-7.7 [facility] Comment on above: Performed By: #### L 501.9520, L506.1000, L100.0100, L501.9985, L500.4050 #### [facility] [address] [place], [address] Basophils/100 WBC (Bld) 0.5 % Normal 0-1 [facility] Comment on above: Performed By: #### L 501.9520, L506.1000, L100.0100, L501.9985, L500.4050 #### [facility] [address] [place], [address] Eosinophils/100 WBC (Bld) 1.7 % Normal 0-5 [facility] Comment on above: Performed By: #### L 501.9520, L506.1000, L100.0100, L501.9985, L500.4050 #### [facility] [address] [place], [address] Erythrocyte distribution width (RBC) [Ratio] 14.3 % Normal 11.6-14.6 [facility] Comment on above: Performed By: #### L 501.9520, L506.1000, L100.0100, L501.9985, L500.4050 #### [facility] [address] [place], [address] Hematocrit (Bld) [Volume fraction] 42.7 % Normal 40-54 [facility] Comment on above: Performed By: #### L 501.9520, L506.1000, L100.0100, L501.9985, L500.4050 #### [facility] [address] [place], [address] Hemoglobin (Bld) [Mass/Vol] 14.1 g/dL Normal 13.0-16.5 [facility] Comment on above: Performed By: #### L 501.9520, L506.1000, L100.0100, L501.9985, L500.4050 #### [facility] [address] [place], [address] IG% 0.400 Normal 0.0-0.9 [facility] Comment on above: Result Comment: IG% - Immature Granulocytes (promyelocytes, myelocytes and metamyelocytes) > 1% indicates that a LEFT SHIFT is Present. Performed By: #### L 501.9520, L506.1000, L100.0100, L501.9985, L500.4050 #### [facility] [address] [place], [address] Lymphocytes/100 WBC (Bld) 27.0 % Normal 19-41 [facility] Comment on above: Performed By: #### L 501.9520, L506.1000, L100.0100, L501.9985, L500.4050 #### [facility] [address] [place], [address] MCH (RBC) [Entitic mass] 28.9 pg Normal 27.0-32.0 [facility] Comment on above: Performed By: #### L 501.9520, L506.1000, L100.0100, L501.9985, L500.4050 #### [facility] [address] [place], [address] MCHC (RBC) [Mass/Vol] 33.0 g/dL Normal 32-36 [facility] Comment on above: Performed By: #### L 501.9520, L506.1000, L100.0100, L501.9985, L500.4050 #### [facility] [address] [place], [address] MCV (RBC) [Entitic vol] 87.5 fL Normal 80-94 [facility] Comment on above: Performed By: #### L 501.9520, L506.1000, L100.0100, L501.9985, L500.4050 #### [facility] [address] [place], [address] Monocytes/100 WBC (Bld) 8.1 % Normal 0-10 [facility] Comment on above: Performed By: #### L 501.9520, L506.1000, L100.0100, L501.9985, L500.4050 #### [facility] [address] [place], [address] Neutrophils/100 WBC (Bld) 62.3 % Normal 47-70 [facility] Comment on above: Performed By: #### L 501.9520, L506.1000, L100.0100, L501.9985, L500.4050 #### [facility] [address], [address] Nucleated RBC (Bld) [#/Vol] 0 10*3/uL Normal 0-5 [facility] Comment on above: Performed By: #### L 501.9520, L506.1000, L100.0100, L501.9985, L500.4050 #### [facility] [address] [place], [address] Platelet mean volume (Bld) [Entitic vol] 11.2 fL Normal 6.2-12.0 [facility] Comment on above: Performed By: #### L 501.9520, L506.1000, L100.0100, L501.9985, L500.4050 #### [facility] [address] [place], [address] Platelets (Bld) [#/Vol] 192 10*3/uL Normal 150-450 [facility] Comment on above: Performed By: #### L 501.9520, L506.1000, L100.0100, L501.9985, L500.4050 #### [facility] [address] [place], [address] RBC (Bld) [#/Vol] 4.88 10*6/uL Normal 4.6-6.2 [facility] Comment on above: Performed By: #### L 501.9520, L506.1000, L100.0100, L501.9985, L500.4050 #### [facility] [address] [place], [address] RDW SD 45.9 fl High 35.1-43.9 [facility] Comment on above: Performed By: #### L 501.9520, L506.1000, L100.0100, L501.9985, L500.4050 #### [facility] [address] [place], [address] WBC (Bld) [#/Vol] 9.7 10*3/uL Normal 4.4-11.0 [facility] Comment on above: Performed By: #### L 501.9520, L506.1000, L100.0100, L501.9985, L500.4050 #### [facility] [address] [place], [address] Comprehensive Metabolic Prof [facility] 12-29-2023 Albumin [Mass/Vol] 3.7 g/dL Normal 3.2-5.0 [facility] Comment on above: Performed By: #### L 501.9520, L506.1000, L100.0100, L501.9985, L500.4050 #### [facility] [address] [place], [address] Albumin/Globulin [Mass ratio] 1.2 {ratio} Normal 0.9-2.4 [facility] Comment on above: Performed By: #### L 501.9520, L506.1000, L100.0100, L501.9985, L500.4050 #### [facility] [address] [place], [address] ALK P 76 U/L Normal 45-117 [facility] Comment on above: Performed By: #### L 501.9520, L506.1000, L100.0100, L501.9985, L500.4050 #### [facility] [address] [place], [address] ALT [Catalytic activity/Vol] 37 U/L Normal 16-61 [facility] Comment on above: Performed By: #### L 501.9520, L506.1000, L100.0100, L501.9985, L500.4050 #### [facility] [address] [place], [address] AST [Catalytic activity/Vol] 26 U/L Normal 15-37 [facility] Comment on above: Performed By: #### L 501.9520, L506.1000, L100.0100, L501.9985, L500.4050 #### [facility] [address] [place], [address] Bilirubin [Mass/Vol] 0.80 mg/dL Normal 0.20-1.00 [facility] Comment on above: Result Comment: For patients on eltrombopag therapy, use of Dimension [place] TBIL is not recommended. Performed By: #### L 501.9520, L506.1000, L100.0100, L501.9985, L500.4050 #### [facility] [address] [place], [address] BUN/CRE 9.5 RATIO Low 10-20 [facility] Comment on above: Performed By: #### L 501.9520, L506.1000, L100.0100, L501.9985, L500.4050 #### [facility] [address] [place], [address] CA,Total 9.3 mg/dL Normal 8.5-10.1 [facility] Comment on above: Performed By: #### L 501.9520, L506.1000, L100.0100, L501.9985, L500.4050 #### [facility] [address] [place], [address] Chloride [Moles/Vol] 107 mmol/L Normal 98-107 [facility] Comment on above: Performed By: #### L 501.9520, L506.1000, L100.0100, L501.9985, L500.4050 #### [facility] [address] [place], [address] CO2 [Moles/Vol] 29.0 mmol/L Normal 21.0-32.0 [facility] Comment on above: Performed By: #### L 501.9520, L506.1000, L100.0100, L501.9985, L500.4050 #### [facility] [address] [place], [address] Creatinine [Mass/Vol] 1.05 mg/dL Normal 0.70-1.30 [facility] Comment on above: Result Comment: The validity of the calculated GFR GFRAA in patients over 70 years has not been determined. Clinical correlation is essential. Performed By: #### L 501.9520, L506.1000, L100.0100, L501.9985, L500.4050 #### [facility] [address] [place], [address] EST GFR - AA 90 mL/min Normal >60 [facility] Comment on above: Result Comment: Afri can [place] GFR Calc Performed By: #### L 501.9520, L506.1000, L100.0100, L501.9985, L500.4050 #### [facility] [address] [place], [address] GAP 4 Low 5-15 [facility] Comment on above: Performed By: #### L 501.9520, L506.1000, L100.0100, L501.9985, L500.4050 #### [facility] [address] [place], [address] GFR/1.73 sq M.predicted among non-blacks MDRD (S/P/Bld) [Vol rate/Area] 74 mL/min/{1.73_m2} Normal >60 [facility] Comment on above: Result Comment: Non- GFR Calc Performed By: #### L 501.9520, L506.1000, L100.0100, L501.9985, L500.4050 #### [facility] [address] [place], [address] Globulin (S) [Mass/Vol] 3.2 g/dL Normal 2.2-4.2 [facility] Comment on above: Performed By: #### L 501.9520, L506.1000, L100.0100, L501.9985, L500.4050 #### [facility] [address] [place], [address] Glucose [Mass/Vol] 149 mg/dL High 74-106 [facility] Comment on above: Result Comment: Fast ing Glucose result greater than or equal to 126 mg/dL suggests DIABETES MELLITUS per A.D.A. criteria. Performed By: #### L 501.9520, L506.1000, L100.0100, L501.9985, L500.4050 #### [facility] [address] [place], [address] Potassium [Moles/Vol] 3.8 mmol/L Normal 3.5-5.1 [facility] Comment on above: Performed By: #### L 501.9520, L506.1000, L100.0100, L501.9985, L500.4050 #### [facility] [address] [place], [address] Sodium [Moles/Vol] 140 mmol/L Normal 136-145 [facility] Comment on above: Performed By: #### L 501.9520, L506.1000, L100.0100, L501.9985, L500.4050 #### [facility] [address] [place], [address] T PROT 6.9 g/dL Normal 6.4-8.2 [facility] Comment on above: Performed By: #### L 501.9520, L506.1000, L100.0100, L501.9985, L500.4050 #### [facility] [address] [place], [address] Urea nitrogen [Mass/Vol] 10 mg/dL Normal 7-18 [facility] Comment on above: Performed By: #### L 501.9520, L506.1000, L100.0100, L501.9985, L500.4050 #### [facility] [address] [place], [address] Hemoglobin A1con 12-29-2023 HbA1c (Bld) [Mass fraction] 7.1 % High 3.8-5.6 [facility] Comment on above: Result Comment: Norm al < 5.7 % Prediabetic 5.7 - 6.4 % Diabetic >or= 6.5 % Please note range changes. Performed By: #### L 501.9520, L506.1000, L100.0100, L501.9985, L500.4050 #### [facility] [address] [place], [address] Thyroid Stim Hormone (TSH)on 12-29-2023 TSH 2.370 uIU/mL Normal 0.358-3.740 [facility] Comment on above: Performed By: #### L 501.9910, L100.0100, L500.4050, L506.1001, L501.9520 #### [facility] [address] [place], [place], [address] Vitamin D,25 Hydroxyon 12-28 Vitamin D 25-OH 26.5 ng/mL Normal [facility] Comment on above: Result Comment: Nicole min D 25(OH) Status Range Deficiency <20 ng/mL (50nmol/L) Insufficiency 20 - 30 ng/mL (50 - 75 nmol/L) Sufficiency 30 - 100 ng/mL (75 - 250 nmol/L) Toxicity >100 ng/mL (>250 nmol/L) Performed By: #### L 501.9520, L506.1000, L100.0100, L501.9985, L500.4050 #### [facility] [address] [place], [place], [address] CNPNon 10-05-2023 [facility] Telephone ([facility]) MARGO JIMENEZ ([id number]) 1955 M Date Time Provider Department 10/05/23 EVANGELISTA PEPE [facility] During your visit today, we recorded the following information about you: Evangelista Pepe APRN.[employer] 10/05/2023 7:13 AM Signed Urine culture reveals bacterial growth. ATB selected is appropriate. Patient should complete. Follow up with PCP for continued sx. Dariela Messina MA 10/05/2023 8:12 AM Signed Patient given results and verbalized understanding of instructions given. Dariela Messina MA Allergies As of Date: 10/05/2023 (No Known Allergies) Date Reviewed: 10/03/2023 Reviewed by: Zahira Cheng MA - Fully Assessed Reason for Visit: Results [95] Prescriptions as of 10/05/2023 - losartan (COZAAR) 100 mg tablet TAKE 1 TABLET ORALLY ONCE PER DAY FOR 30 DAYS - hydroCHLOROthiazide 25 mg tablet TAKE 1 TABLET ORALLY ONCE PER DAY FOR 90 DAYS - metoprolol tartrate, short acting, (LOPRESSOR) 25 mg tablet TAKE 1 TABLET BY MOUTH TWICE A DAY [id number] - metFORMIN (GLUCOPHAGE) 1,000 mg tablet TAKE 1 TABLET BY MOUTH TWICE A DAY [id number] - pravastatin (PRAVACHOL) 80 mg tablet TAKE ONE TABLET BY MOUTH EVERYDAY AT BEDTIME FOR 90 DAYS - pioglitazone (ACTOS) 30 mg tablet Take 1 tablet by mouth every afternoon. - nitrofurantoin monohydrate and macrocrystal (MACROBID) 100 mg capsule Take 1 capsule by mouth two times a day for 5 days. - BENICAR HCT 40-25 mg per tablet - atorvastatin (LIPITOR) 40 mg tablet Take 40 mg by mouth once daily. - OLMESARTAN MEDOXOMIL (BENICAR ORAL) Take by mouth. - nebivolol (BYSTOLIC) 5 mg ORAL tablet Take 5 mg by mouth once daily. - AVALIDE 300 MG-25 MG TAB Take one(1) tablet daily. Problem List As Of Date: 10/05/2023 (None) Encounter Status:Closed by DARIELA MESSINA on 10/05/23 [facility] Bacteria Ur Culton 4 Bacteria identified Cx Nom (U) ORGANISM ID: 1 >=100,000 CFU/ml Escherichia coli ORGANISM ID: 1 (ESCHERICHIA COLI) -- ANTIBIOTIC INTERPRETATION MARLENE STATUS REFERENCE RANGE -- Ampicillin S <=2 F Susceptible <=8 , Intermediate >8 , Resistant >16 Cefazolin S <=4 F Susceptible 0-16 , Intermediate <0 or >16 , Resistant >16 For uncomplicated urinary tract infections, cefazolin results can be used to predict susceptibility or resistance to cephalexin. Ceftriaxone S <=1 F Susceptible <=1 , Intermediate >1 , Resistant >=4 Cefepime S <=1 F Susceptible <=2 , Susceptible-Dose Dependent >2 , Resistant >=16 Ertapenem S <=0.5 F Susceptible <=0.5 , Intermediate >.5 , Resistant >1 Meropenem S <=0.25 F Susceptible <=1 , Intermediate >1 , Resistant >2 Ampicillin/Sulbact S <=2 F Susceptible <=8 , Intermediate >8 , Resistant >16 Piperacillin/Tazobac S <=4 F Susceptible <16 , Susceptible-Dose Dependent >=16 , Resistant >=32 Gentamicin S <=1 F Susceptible <=2 , Intermediate >2 , Resistant >=8 Tobramycin S <=1 F Susceptible <4 , Intermediate >=4 , Resistant >=8 Trimeth sulfameth S <=20 F Susceptible <=40 , Resistant >40 Ciprofloxacin S <=0.25 F Susceptible <0.5 , Intermediate >=.5 , Resistant >=1 Nitrofurantoin S <=16 F Susceptible <=32 , Intermediate >32 , Resistant >64 Abnormal [facility] Comment on above: Performed By: #### 6 30-4 #### [facility] CLIA [id number] [address] [place] [address] [place] 10-03-2023 [facility] Office Visit ([facility] ) MARGO JIMENEZ ([id number]) 1955 M Date Time Provider Department 10/03/23 10:30 AM LUZ GIORDANO [facility] During your visit today, we recorded the following information about you: Temperature Pulse Respiration Blood pressure 97.4 degrees 64/minute 21/minute 122/80 Weight 120.1 kg Luz Giordano APRN.CNP 10/03/2023 10:28 AM Signed ASSESSMENT/PLAN: 1. Burning with urination - ICD9: 788.1, ICD10: R30.0 (primary diagnosis) acute - UA positive for hoda esterase, hematuria, and proteinuria - Send urine for culture - Begin treatment with Macrobid 100 mg BID for 5 days - UA DIP, URINE (POC) - URINE CULTURE - NITROFURANTOIN MONOHYDRATE AND MACROCRYSTAL 100 MG ORAL CAP 2. Acute cystitis with hematuria - ICD9: 595.0, ICD10: N30.01 3. Urinary frequency - ICD9: 788.41, ICD10: R35.0 - Follow-up with your PCP in 3-5 days if symptoms have not improved or sooner if symptoms worsen - Discussed red flags and need for immediate medical evaluation if any occur. - Discussed supportive care treatment with fluids, rest and analgesia. - Discussed expected course of illness Luz Giordano APRN.[employer] [facility] CARE PATIENT INFO BLADDER INFECTION OVERVIEW Bladder infections are one of the most common infections, causing symptoms of burning with urination and needing to urinate frequently. A bladder infection is a type of urinary tract infection (UTI). Bladder infections are more common is women than men. Most women have an uncomplicated bladder infection that is easily treated with a short course of antibiotics. In men, bladder infections may also affect the prostate gland, and a longer course of treatment may be needed. BLADDER INFECTION CAUSES The urinary tract includes the kidneys (which filter urine), ureters (the tube that carries urine from the kidneys to the bladder), the bladder (which stores urine), and urethra (the tube that carries urine out of the bladder). Bacteria do not normally live in these areas. However, bacteria normally live close to the urethra in women and men who are not circumcised. Bladder infections occur when bacteria travel up the urethra into the bladder. Factors that increase the risk of developing a bladder infection include: Vaginal sex Use of spermicides History of past bladder infections Diabetes In men, not being circumcised or having anal sex increase the risk of bladder infections. BLADDER INFECTION SYMPTOMS The typical symptoms of a bladder infection include: Pain or burning when urinating Frequent need to urinate Urgent need to urinate Blood in the urine Fever, back pain, nausea, or vomiting are not common symptoms of a bladder infection, but can occur in people with a kidney infection (pyelonephritis). If you have these symptoms, you should call your doctor or nurse immediately. Is it a bladder infection or something else? -- Burning with urination can also occur in people with vaginitis (eg, yeast infection) or urethritis (inflammation of the urethra). For this reason, it is important to call your healthcare provider before assuming you have a bladder infection. BLADDER INFECTION DIAGNOSIS Simple bladder infections are usually diagnosed based upon your symptoms alone. However, most patients, especially those who have bladder infection symptoms for the first time, should see a healthcare provider for urine testing. Urine culture -- A urine culture is a test that uses a sample of urine to try and grow bacteria in a laboratory. It usually requires about 48 hours to get results. However, a urine culture is not always required to diagnose a bladder infection. Urine culture is often recommended if: You have never had a bladder infection before You have symptoms that are not typical for bladder infection You have had resistant bladder infections before You have frequent bladder infections You do not begin to feel better within 24 to 48 hours after starting antibiotics You are BLADDER INFECTION TREATMENT Bladder infection -- In young, healthy adolescents and adults with a bladder infection, the usual treatment includes a three to seven day course of antibiotics. The typical drugs chosen are: trimethoprim-sulfameth oxazole (Bactrim?), nitrofurantoin (Macrobid?), ciprofloxacin (Cipro?) or levofloxacin (Levaquin?). In men, the infection may involve your prostate gland and treatment is usually given for at least 7 days. Your symptoms should begin to resolve within one day after starting treatment. It is important to take the full course of antibiotics to completely eliminate the infection. If your symptoms persist for more than two or three days after starting treatment, call your healthcare provider. If needed, you can take a prescription medication that numbs the bladder and urethra (phenazopyridine [ (more content not included)... Normal [facility] UA DIP, URINE (POC)on 2023 BILIRUBIN UA (POCT) Negative Negative [facility] CLARITY UA (POCT) Clear [facility] COLOR UA (POCT) Yellow [facility] GLUCOSE UA (POCT) Negative Negative mg/dL [facility] Hemoglobin Ql (U) Trace-intact Abnormal Negative [facility] Interpretation and review of laboratory results Abnormal [facility] KETONE UA (POCT) Negative Negative mg/dL [facility] LEUKOCYTES UA (POCT) Small Abnormal Negative [facility] NITRITE UA (POCT) Negative Negative [facility] PH UA (POCT) 5.5 4.5 - 8.0 [facility] Protein Ql (U) Trace Abnormal Negative mg/dL [facility] SPECIFIC GRAVITY UA (POCT) >=1.030 1.005 - 1.030 [facility] UROBILINOGEN UA (POCT) 0.2 Kyleigh l E.U./dL [facility] Location:[facility], [address] [place] [address], [place], [place], [id number] [place] [address] POINT OF CARE [facility] Absolute lymphocyte countOrd ered By: William Arnold on 06-29-2023 Lymphocytes Auto (Unsp spec) [#/Vol] 2.43 10*3/uL 0.83-4.51 [facility] Automated lymphocyte count a s percentage of total leukocytesOrdered By: William Arnold on 06-29-2023 Lymphocytes/100 WBC Auto (Unsp spec) 26.2 % 19-41 [facility] Basophil percentageOrdered B y: William Arnold on 06-29-2023 Basophils/100 WBC (Bld) 0.8 % 0-1 [facility] Bilirubin [Mass/Vol] 0.90 mg/dL 0.20-1.00 [facility] Comment on above: For patients on eltr ombopag therapy, use of Dimension [place] TBIL is not recommended. Chloride [Moles/Vol] 106 mmol/L 98-107 [facility] Eosinophils/100 WBC (Bld) 2.4 % 0-5 [facility] Glucose [Mass/Vol] 195 mg/dL 74-106 [facility] Comment on above: Fasting Glucose resu lt greater than or equal to 126 mg/dL suggests DIABETES MELLITUS per A.D.A. criteria. Hemoglobin (Bld) [Mass/Vol] 14.2 g/dL 13.0-16.5 [facility] Monocytes/100 WBC (Bld) 8.7 % 0-10 [facility] Neutrophils (Bld) [#/Vol] 5.7 10*3/uL 2.0-7.7 [facility] Neutrophils/100 WBC (Bld) 61.6 % 47-70 [facility] Potassium [Moles/Vol] 3.5 mmol/L 3.5-5.1 [facility] Protein [Mass/Vol] 6.5 g/dL 6.4-8.2 [facility] Sodium [Moles/Vol] 139 mmol/L 136-145 [facility] WBC (Bld) [#/Vol] 9.3 10*3/uL 4.4-11.0 [facility] Determination of erythrocyte mean corpuscular volume (MCV)Ordered By: William Arnold on 06-29-2023 MCV (RBC) [Entitic vol] 88.1 fL 80-94 [facility] Erythrocyte distribution wid th ratioOrdered By: William Arnold 06-29-2023 Erythrocyte distribution width (RBC) [Ratio] 13.4 % 11.6-14.6 [facility] Erythrocyte distribution wid th standard deviationOrdered By: William Arnold 06-29-2023 Erythrocyte distribution width (RBC) [Entitic vol] 43.3 fL 35.1-43.9 [facility] Hematocrit Auto (Bld) [Volum e fraction]Ordered By: William Arnold 06-29-2023 Hematocrit (Bld) [Volume fraction] 43.7 % 40-54 [facility] Immature granulocytes/100 WB C Auto (Bld)Ordered By: William Arnold on 06-29-2023 Immature granulocytes/100 WBC (Bld) 0.300 % 0.0-0.9 [facility] Comment on above: IG% - Immature Granu locytes (promyelocytes, myelocytes and metamyelocytes) > 1% indicates that a LEFT SHIFT is Present. Laboratory - Chemistry and C hemistry - challengeOrdered By: William Arnold on 06-29-2023 Albumin/Globulin [Mass ratio] 1.2 {ratio} 0.9-2.4 [facility] ALP [Catalytic activity/Vol] 77 U/L 45-117 [facility] ALT [Catalytic activity/Vol] 37 U/L 16-61 [facility] CO2 [Moles/Vol] 28.0 mmol/L 21.0-32.0 [facility] Globulin (S) [Mass/Vol] 2.9 g/dL 2.2-4.2 [facility] Urea nitrogen/Creatinine [Mass ratio] 9.9 mg/mg 10-20 [facility] Laboratory - Hematology and Cell countsOrdered By: William Arnold on 06-29-2023 MCH (RBC) [Entitic mass] 28.6 pg 27.0-32.0 [facility] MCHC (RBC) [Mass/Vol] 32.5 g/dL 32-36 [facility] Nucleated RBC/100 WBC (Bld) [Ratio] 0 % 0-5 [facility] Platelet mean volume (Bld) [Entitic vol] 11.7 fL 6.2-12.0 [facility] Platelets (Bld) [#/Vol] 199 10*3/uL 150-450 [facility] No Panel InformationOrdered By: William Arnold on 06-29-2023 Estimated GFR (MDRD) Amer 94 mL/min >60 [facility] Comment on above: GFR Calc Estimated GFR (MDRD) Non-Af Amer 78 mL/min >60 [facility] Comment on above: Non- GFR Calc Vitamin D 25-Hydroxy 27.5 ng/mL [facility] Comment on above: Vitamin D 25(OH) Sta tus Range Deficiency <20 ng/mL (50nmol/L) Insufficiency 20 - 30 ng/mL (50 - 75 nmol/L) Sufficiency 30 - 100 ng/mL (75 - 250 nmol/L) Toxicity >100 ng/mL (>250 nmol/L) RBC Auto (Bld) [#/Vol]Ordere d By: William Arnold on 06-29-2023 RBC (Bld) [#/Vol] 4.96 10*6/uL 4.6-6.2 [facility] Serum or plasma calcium aden urement (mass/volume)Ordered By: William Arnold on 06-29-2023 Calcium [Mass/Vol] 9.1 mg/dL 8.5-10.1 [facility] Serum or plasma creatinine m easurement (mass/volume)Ordered By: William Arnold on 06-29-2023 Creatinine [Mass/Vol] 1.01 mg/dL 0.70-1.30 [facility] Comment on above: The validity of the calculated GFR & GFRAA in patients over 70 years has not been determined. Clinical correlation is essential. Serum or plasma thyroid stim ulating hormone (TSH) measurement (units/volume)Ordered By: William Arnold on 06-29-2023 TSH Qn 3.06 uIU/mL 0.358-3.74 [facility] Serum or plasma urea nitroge n measurement (mass/volume)Ordered By: William Arnold on 06-29-2023 Urea nitrogen [Mass/Vol] 10 mg/dL 7-18 [facility] Thin prep Papanicolaou smear with manual screeningOrdered By: William Arnold on 06-29-2023 Thin prep Papanicolaou smear with manual screening 3.6 g/dL 3.2-5.0 [facility] Thin prep Papanicolaou smear with manual screening 23 U/L 15-37 [facility] Thin prep Papanicolaou smear with manual screening 5 5-15 [facility] Absolute lymphocyte countOrd ered By: William Arnold on 12-30-2022 Lymphocytes Auto (Unsp spec) [#/Vol] 2.49 10*3/uL 0.83-4.51 [facility] Basophil percentageOrdered B y: William Arnold on 12-30-2022 Basophils/100 WBC (Bld) 0.6 % 0-1 [facility] Bilirubin [Mass/Vol] 0.90 mg/dL 0.20-1.00 [facility] Comment on above: For patients on eltr ombopag therapy, use of Dimension [place] TBIL is not recommended. Chloride [Moles/Vol] 106 mmol/L 98-107 [facility] Eosinophils/100 WBC (Bld) 1.8 % 0-5 [facility] Glucose [Mass/Vol] 155 mg/dL 74-106 [facility] Comment on above: Fasting Glucose resu lt greater than or equal to 126 mg/dL suggests DIABETES MELLITUS per A.D.A. criteria. Neutrophils (Bld) [#/Vol] 6.0 10*3/uL 2.0-7.7 [facility] Neutrophils/100 WBC (Bld) 62.1 % 47-70 [facility] Potassium [Moles/Vol] 3.5 mmol/L 3.5-5.1 [facility] Protein [Mass/Vol] 6.7 g/dL 6.4-8.2 [facility] Sodium [Moles/Vol] 138 mmol/L 136-145 [facility] WBC (Bld) [#/Vol] 9.6 10*3/uL 4.4-11.0 [facility] Blood erythrocytes count (nu mber/volume)Ordered By: William Arnold on 12-30-2022 RBC (Bld) [#/Vol] 4.97 10*6/uL 4.6-6.2 [facility] Blood hemoglobin measurement (mass/volume)Ordered By: William Arnold on 12-30-2022 Hemoglobin (Bld) [Mass/Vol] 14.8 g/dL 13.0-16.5 [facility] Blood lymphocytes/100 leukoc ytesOrdered By: William Arnold on 12-30-2022 Lymphocytes/100 WBC (Bld) 26.0 % 19-41 [facility] Blood monocytes/100 leukocyt esOrdered By: William Arnold on 12-30-2022 Monocytes/100 WBC (Bld) 9.0 % 0-10 [facility] Blood platelet mean volumeOr dered By: William Arnold on 12-30-2022 Platelet mean volume (Bld) [Entitic vol] 11.1 fL 6.2-12.0 [facility] Determination of erythrocyte mean corpuscular volume (MCV)Ordered By: William Arnold on 12-30-2022 MCV (RBC) [Entitic vol] 87.9 fL 80-94 [facility] Hematocrit Auto (Bld) [Volum e fraction]Ordered By: William Arnold on 12-30-2022 Hematocrit (Bld) [Volume fraction] 43.7 % 40-54 [facility] Laboratory - Chemistry and C hemistry - challengeOrdered By: William Arnold on 12-30-2022 ALP [Catalytic activity/Vol] 76 U/L 45-117 [facility] ALT [Catalytic activity/Vol] 39 U/L 16-61 [facility] CO2 [Moles/Vol] 26.0 mmol/L 21.0-32.0 [facility] Globulin (S) [Mass/Vol] 3.1 g/dL 2.2-4.2 [facility] Urea nitrogen/Creatinine [Mass ratio] 8.7 mg/mg 10-20 [facility] Laboratory - Hematology and Cell countsOrdered By: William Arnold on 12-30-2022 Erythrocyte distribution width (RBC) [Entitic vol] 44.3 fL 35.1-43.9 [facility] Erythrocyte distribution width (RBC) [Ratio] 13.8 % 11.6-14.6 [facility] Immature granulocytes/100 WBC (Bld) 0.500 % 0.0-0.9 [facility] Comment on above: IG% - Immature Granu locytes (promyelocytes, myelocytes and metamyelocytes) > 1% indicates that a LEFT SHIFT is Present. MCH (RBC) [Entitic mass] 29.8 pg 27.0-32.0 [facility] Nucleated RBC/100 WBC (Bld) [Ratio] 0 % 0-5 [facility] MCHC Auto (RBC) [Mass/Vol]Or dered By: William Arnold on 12-30-2022 MCHC (RBC) [Mass/Vol] 33.9 g/dL 32-36 [facility] No Panel InformationOrdered By: William Arnold on 12-30-2022 Estimated GFR (MDRD) Amer 92 mL/min >60 [facility] Comment on above: GFR Calc Estimated GFR (MDRD) Non-Af Amer 76 mL/min >60 [facility] Comment on above: Non- GFR Calc Prostate Specific Antigen Screen 0.74 ng/mL 0.00-4.00 [facility] Comment on above: This test was perfor med using the TPSA assay method for theLettuce chemistry system. Values obtained with differentassay methods cannot be used interchangably.When changing PSA assays in the course of monitoring apatient, additional sequential testing should be carriedout to confirm baseline values. Thyroid Stimulating Hormone (TSH) 2.63 uIU/mL 0.358-3.74 [facility] Vitamin D 25-Hydroxy 36.6 ng/mL [facility] Comment on above: Vitamin D 25(OH) Sta tus Range Deficiency <20 ng/mL (50nmol/L) Insufficiency 20 - 30 ng/mL (50 - 75 nmol/L) Sufficiency 30 - 100 ng/mL (75 - 250 nmol/L) Toxicity >100 ng/mL (>250 nmol/L) Platelets bldOrdered By: William Arnold on 12-30-2022 Platelets (Bld) [#/Vol] 200 10*3/uL 150-450 [facility] Serum or plasma albumin aden urement (mass/volume)Ordered By: William Arnold on 12-30-2022 Albumin [Mass/Vol] 3.6 g/dL 3.2-5.0 [facility] Serum or plasma albumin/glob ulin mass ratioOrdered By: William Arnold 12-30-2022 Albumin/Globulin [Mass ratio] 1.2 {ratio} 0.9-2.4 [facility] Serum or plasma calcium aden urement (mass/volume)Ordered By: William Arnold 12-30-2022 Calcium [Mass/Vol] 8.9 mg/dL 8.5-10.1 [facility] Serum or plasma creatinine m easurement (mass/volume)Ordered By: William Arnold 12-30-2022 Creatinine [Mass/Vol] 1.03 mg/dL 0.70-1.30 [facility] Comment on above: The validity of the calculated GFR & GFRAA in patients over 70 years has not been determined. Clinical correlation is essential. Serum or plasma urea nitroge n measurement (mass/volume)Ordered By: William Arnold on 12-30-2022 Urea nitrogen [Mass/Vol] 9 mg/dL 7-18 [facility] Thin prep Papanicolaou smear with manual screeningOrdered By: William Arnold 12-30-2022 Thin prep Papanicolaou smear with manual screening 28 U/L 15-37 [facility] Thin prep Papanicolaou smear with manual screening 6 5-15 [facility] Absolute lymphocyte countOrd ered By: Dr. Arnold on 06-24-2022 Lymphocytes Auto (Unsp spec) [#/Vol] 2.60 10*3/uL 0.83-4.51 [facility] Basophil percentageOrdered B y: Dr. Arnold on 06-24-2022 Basophils/100 WBC (Bld) 0.7 % 0-1 [facility] Bilirubin [Mass/Vol] 0.70 mg/dL 0.20-1.00 [facility] Comment on above: For patients on eltr ombopag therapy, use of Dimension [place] TBIL is not recommended. Chloride [Moles/Vol] 104 mmol/L 98-107 [facility] Eosinophils/100 WBC (Bld) 1.8 % 0-5 [facility] Glucose [Mass/Vol] 203 mg/dL 74-106 [facility] Comment on above: Glucose result great er than or equal to 200 mg/dLsuggests DIABETES MELLITUS per A.D.A. criteria. Neutrophils (Bld) [#/Vol] 5.7 10*3/uL 2.0-7.7 [facility] Neutrophils/100 WBC (Bld) 61.8 % 47-70 [facility] Potassium [Moles/Vol] 3.8 mmol/L 3.5-5.1 [facility] Protein [Mass/Vol] 7.1 g/dL 6.4-8.2 [facility] Sodium [Moles/Vol] 140 mmol/L 136-145 [facility] Testosterone [Mass/Vol] 156.18 ng/dL [facility] Comment on above: CENTRAL 90% REFERENC E RANGES MALE AGE <50 197.44 - 669.58 ng/dL MALE AGE > or = 50 187.72 - 684.19 ng/dL FEMALE AGE <50 8.38 - 35.01 ng/dL FEMALE AGE > or = 50 <7.00 - 35.92 ng/dL Effective as of 11/25/20 WBC (Bld) [#/Vol] 9.2 10*3/uL 4.4-11.0 [facility] Blood erythrocytes count (nu mber/volume)Ordered By: Dr. Arnold on 06-24-2022 RBC (Bld) [#/Vol] 5.09 10*6/uL 4.6-6.2 [facility] Blood hemoglobin measurement (mass/volume)Ordered By: Dr. Arnold on 06-24-2022 Hemoglobin (Bld) [Mass/Vol] 15.2 g/dL 13.0-16.5 [facility] Blood lymphocytes/100 leukoc ytesOrdered By: Dr. Arnold on 06-24-2022 Lymphocytes/100 WBC (Bld) 28.2 % 19-41 [facility] Blood monocytes/100 leukocyt esOrdered By: Dr. Arnold on 06-24-2022 Monocytes/100 WBC (Bld) 7.2 % 0-10 [facility] Blood platelet mean volumeOr dered By: Dr. Arnold on 06-24-2022 Platelet mean volume (Bld) [Entitic vol] 11.6 fL 6.2-12.0 [facility] Determination of erythrocyte mean corpuscular volume (MCV)Ordered By: Dr. Arnold on 06-24-2022 MCV (RBC) [Entitic vol] 89.2 fL 80-94 [facility] Hematocrit Auto (Bld) [Volum e fraction]Ordered By: Dr. Arnold on 06-24-2022 Hematocrit (Bld) [Volume fraction] 45.4 % 40-54 [facility] Laboratory - Chemistry and C hemistry - challengeOrdered By: Dr. Arnold on 06-24-2022 ALP [Catalytic activity/Vol] 76 U/L 45-117 [facility] ALT [Catalytic activity/Vol] 50 U/L 16-61 [facility] CO2 [Moles/Vol] 27.0 mmol/L 21.0-32.0 [facility] Globulin (S) [Mass/Vol] 3.4 g/dL 2.2-4.2 [facility] Urea nitrogen/Creatinine [Mass ratio] 10.7 mg/mg 10-20 [facility] Laboratory - Hematology and Cell countsOrdered By: Dr. Arnold on 06-24-2022 Erythrocyte distribution width (RBC) [Entitic vol] 45.2 fL 35.1-43.9 [facility] Erythrocyte distribution width (RBC) [Ratio] 13.8 % 11.6-14.6 [facility] Immature granulocytes/100 WBC (Bld) 0.300 % 0.0-0.9 [facility] Comment on above: IG% - Immature Granu locytes (promyelocytes, myelocytes and metamyelocytes) > 1% indicates that a LEFT SHIFT is Present. MCH (RBC) [Entitic mass] 29.9 pg 27.0-32.0 [facility] Nucleated RBC/100 WBC (Bld) [Ratio] 0 % 0-5 [facility] MCHC Auto (RBC) [Mass/Vol]Or dered By: Dr. Arnold on 06-24-2022 MCHC (RBC) [Mass/Vol] 33.5 g/dL 32-36 [facility] No Panel InformationOrdered By: Dr. Arnold on 06-24-2022 Estimated GFR (MDRD) Amer 84 mL/min >60 [facility] Comment on above: GFR Calc Estimated GFR (MDRD) Non-Af Amer 69 mL/min >60 [facility] Comment on above: Non- GFR Calc Thyroid Stimulating Hormone (TSH) 2.55 uIU/mL 0.358-3.74 [facility] Vitamin D 25-Hydroxy 15.4 ng/mL [facility] Comment on above: Vitamin D 25(OH) Sta tus Range Deficiency <20 ng/mL (50nmol/L) Insufficiency 20 - 30 ng/mL (50 - 75 nmol/L) Sufficiency 30 - 100 ng/mL (75 - 250 nmol/L) Toxicity >100 ng/mL (>250 nmol/L) Platelets bldOrdered By: Dr. Arnold on 06-24-2022 Platelets (Bld) [#/Vol] 193 10*3/uL 150-450 [facility] Serum or plasma albumin aden urement (mass/volume)Ordered By: Dr. Arnold on 06-24-2022 Albumin [Mass/Vol] 3.7 g/dL 3.2-5.0 [facility] Serum or plasma albumin/glob ulin mass ratioOrdered By: Dr. Arnold on 06-24-2022 Albumin/Globulin [Mass ratio] 1.1 {ratio} 0.9-2.4 [facility] Serum or plasma calcium aden urement (mass/volume)Ordered By: Dr. Arnold on 06-24-2022 Calcium [Mass/Vol] 9.4 mg/dL 8.5-10.1 [facility] Serum or plasma creatinine m easurement (mass/volume)Ordered By: Dr. Arnold on 06-24-2022 Creatinine [Mass/Vol] 1.12 mg/dL 0.70-1.30 [facility] Comment on above: The validity of the calculated GFR & GFRAA in patients over 70 years has not been determined. Clinical correlation is essential. Serum or plasma urea nitroge n measurement (mass/volume)Ordered By: Dr. Arnold on 06-24-2022 Urea nitrogen [Mass/Vol] 12 mg/dL 7-18 [facility] Thin prep Papanicolaou smear with manual screeningOrdered By: Dr. Arnold on 06-24-2022 Thin prep Papanicolaou smear with manual screening 33 U/L 15-37 [facility] Thin prep Papanicolaou smear with manual screening 9 5-15 [facility] Vital Signs Date Time Vital Sign Value Performing Clinician Faci lity 10-03-2023 10:10-0400 Body temperature 97.39 [degF] Luz Giordano APRN.[employer] Work Phone: [facility] 10-03-2023 10:10-0400 Body weight 120.1 kg Luz Giordano APRN.[employer] Work Phone: [facility] 10-03-2023 10:10-0400 Diastolic blood pressure 80 mm[Hg] Luz Giordano APRN.[employer] Work Phone: [facility] 10-03-2023 10:10-0400 Heart rate 64 /min Luz Giordano APRN.[employer] Work Phone: [facility] 10-03-2023 10:10-0400 Respiratory rate 21 /min Luz Giordano APRN.[employer] Work Phone: [facility] 10-03-2023 10:10-0400 SaO2% (BldA) [Mass fraction] 98 % Luz Giordano APRN.[employer] Work Phone: [facility] 10-03-2023 10:100 Systolic blood pressure 122 mm[Hg] Luz Giordano PUBLISHING AGENT.[employer] Work Phone: [facility] Encounters Encounter Date Encounter Type Care Provider Facility Start: 07-02-2024 End: 07-02-[address] William Arnold MD Work Phone: [facility] Work Phone: Start: 07-02-2024 End: 07-02-[address] William Arnold MD -Laboratory, Phy Office 3rd Flr Start: 07-02-2024 End: 07-02-2024 ambulatory [facility] Facility:[facility] Start: 12-29-2023 End: 12-29-2023 ambulatory [facility] Facility:[facility] Start: 10-10-2023 End: 10-10-2023 Emergency department patient visit [facility] Start: 10-05-2023 Telephone encounter Evangelista alvarez PUBLISHING AGENT.[employer] Work Phone: [facility] Comment on above: Results Start: 10-03-2023 End: 10-03-[address] [facility] Facility:[facility] Start: 10-03-2023 End: 10-03-2023 Patient encounter procedure Luz Giordano PUBLISHING AGENT.[employer] Work Phone: [facility] Comment on above: Burning with urinati on (Primary Dx); Acute cystitis with hematuria; Urinary frequency Start: 06-29-2023 End: 06-29-2023 ambulatory [facility] Work Phone: Start: 06-29-2023 End: 06-29-2023 Patient encounter procedure [facility]-Laboratory, Phy Office 3rd Flr Start: 12-30-2022 End: 12-30-2022 ambulatory [facility] Work Phone: Start: 12-30-2022 End: 12-30-2022 Patient encounter procedure [facility]-Laboratory, Phy Office 3rd Flr Start: 06-24-2022 End: 06-24-2022 ambulatory [facility] Work Phone: Start: 06-24-2022 End: 06-24-2022 Patient encounter procedure [facility]-Laboratory, Phy Office 3rd Flr Procedures Date Procedure Procedure Detail Performing Clinician Start: 10-03-2023 Urnls dip stick/tabl et rgnt auto w/o microscopy Soto King CAMERONN.[employer] Work Phone: Plan of Treatment Date Care Activity Detail Author Start: 05-02-2023 Advance Directive Discussion Advance Directive Discussion [facility] Start: 05-02-2023 Behavioral Health Screening Behavioral Health Screening [facility] Start: 12-31-2022 Covid-19 Vaccine ( season) Covid-19 Vaccine ( season) [facility] Start: 12-23-2020 Pneumococcal Vaccine: 65+ (2 of 2 - PCV) Pneumococcal Vaccine: 65+ (2 of 2 - PCV) [facility] Start: 2014 RSV Vaccine (1 - 1-dose 60+ series) RSV Vaccine (1 - 1-dose 60+ series) [facility] Start: 2009 Prostate specific antigen measurement Prostate Cancer Screening Discussion [facility] Start: 2004 Shingrix Vaccine (1 of 2) Shingrix Vaccine (1 of 2) [facility] Start: 11-06-1999 Diabetes Screening Diabetes Screening [facility] Start: 11-06-1999 Screening for malignant neoplasm of colon [facility] Start: 1989 Lipid panel Lipid Screening [facility] Start: 1973 Urine microalbumin profile DTaP,Tdap,Td Vaccine (1 - Tdap) [facility] Start: 1972 Hepatitis C screening Hepatitis C Screening [facility] Start: 1954 Abdominal aortic aneurysm screening Abdominal Aortic Aneurysm Screening [facility] Bacteria identified in Urine by Culture URINE CULTURE Microbiology Routine Burning with urination 10/03/2023 10:35 AM EDT [facility] Work Phone: Payers Date Payer Category Payer Private Health Insurance [id number] 2023 Medicare [id number] 2023 Self-pay [id number] 2015 Unknown [id number] 2002 Unknown [id number] 2002 Unknown [id number] Unknown [facility] COMP MANAGEMENT [id number] Unknown [id number] 2 Unknown [id number] Social History Date Type Detail Facility Start: 03-09-2021 End: 03-09-2021 Tobacco smoking status [facility] Unknown if ever smoked [facility] Start: 1955 Sex Assigned At Male [facility] Start: 03-09-2021 End: 10-03-2023 Tobacco smoking status ALIS Ex-smoker [facility] History of tobacco use Current smoker [facility] History of tobacco use Cigarette Smoker [facility] Start: 04-09-2020 End: 10-03-2023 Cigarettes smoked current (pack per day) - Reported 1.5 [facility] Start: 10-03-2023 Tobacco use and exposure Smokeless tobacco non-user [facility] Start: 10-03-2023 Alcohol intake 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 Dariela Messina MA [facility] Note 10-05-2023 Telephone Encounter - Dariela Messina MA - 10/05/2023 8:12 AM EDTTelephone Encounter - Evangelista Pepe APRN.CNP - 10/05/2023 7:13 AM EDT Note Date & Type Note Facility 10-05-2023 Miscellaneous Notes Formattin g of this note might be different from the original. Patient given results and verbalized understanding of instructions given. Dariela Messina MA Urine culture reveals bacterial growth. ATB selected is appropriate. Patient should complete. Follow up with PCP for continued sx. documented in this encounter [facility] Telephone encounter Note 10-05-2023 Telephone Encounter - Evangelista Pepe APRN.CNP - 10/05/2023 7:13 AM EDT Note Date & Type Note Facility 10-05-2023 Telephone encounter Note Urine culture reveals bacterial growth. ATB selected is appropriate. Patient should complete. Follow up with PCP for continued sx. [facility] Work Phone: Progress note 10-03-2023 Note Date & Type Note Facility 10-03-2023 Note HNO ID: [id number] Author: LUZ GIORDANO APRN.CNP Service: ? Author Type: Nurse Practitioner Type: Progress Notes Filed: 10/03/2023 10:30 Note Text: Subjective HPI Margo Jimenez is a 67 year old male who presents with 2 days of dysuria and frequency and urgency. He has had intermittent flank pain. He has increased his water intake and taken advil at home. He denies fever, chills, nausea or vomiting. Review of Systems Constitutional: Negative for chills and fever. Respiratory: Negative. Cardiovascular: Negative. Gastrointestinal: Negative for abdominal pain, nausea and vomiting. Genitourinary: Positive for dysuria, flank pain, frequency and urgency. Negative for hematuria. Musculoskeletal: Negative for back pain. BP 122/80 Pulse 64 Temp 36.3 ?C (97.4 ?F) Resp 21 Wt 120.1 kg (264 lb 12.4 oz) SpO2 98% PAST MEDICAL HISTORY Diagnosis Date Essential hypertension, benign PAST SURGICAL HISTORY Procedure Laterality Date DIAGNOSIS/HISTORY maxofacial reconstruction EXPLORATORY LAPAROTOMY CELIOTOMY W/WO BIOPSY SPX 12-09-15 LAPS INSERTION TUNNELED INTRAPERITONEAL CATHETER 08/25/06 LAPS SURG CHOLECYSTECTOMY W/CHOLANGIOGRAPHY 08-24-03 SIGMOIDOSCOPY FLX DX W/COLLJ SPEC BR/WA IF PFRMD 12-09-15 ALLERGIES Patient has no known allergies. MEDICATIONS losartan (COZAAR) 100 mg tablet TAKE 1 TABLET ORALLY ONCE PER DAY FOR 30 DAYS hydroCHLOROthiazide 25 mg tablet TAKE 1 TABLET ORALLY ONCE PER DAY FOR 90 DAYS metoprolol tartrate, short acting, (LOPRESSOR) 25 mg tablet TAKE 1 TABLET BY MOUTH TWICE A DAY [id number] metFORMIN (GLUCOPHAGE) 1,000 mg tablet TAKE 1 TABLET BY MOUTH TWICE A DAY [id number] pravastatin (PRAVACHOL) 80 mg tablet TAKE ONE TABLET BY MOUTH EVERYDAY AT BEDTIME FOR 90 DAYS pioglitazone (ACTOS) 30 mg tablet Take 1 tablet by mouth every afternoon. nitrofurantoin monohydrate and macrocrystal (MACROBID) 100 mg capsule Take 1 capsule by mouth two times a day for 5 days. BENICAR HCT 40-25 mg per tablet (Patient not taking: Reported on 10/03/2023) atorvastatin (LIPITOR) 40 mg tablet Take 40 mg by mouth once daily. (Patient not taking: Reported on 10/03/2023) OLMESARTAN MEDOXOMIL (BENICAR ORAL) Take by mouth. (Patient not taking: Reported on 10/03/2023) nebivolol (BYSTOLIC) 5 mg ORAL tablet Take 5 mg by mouth once daily. (Patient not taking: Reported on 10/03/2023) AVALIDE 300 MG-25 MG TAB Take one(1) tablet daily. (Patient not taking: Reported on 10/03/2023) FAMILY HISTORY Problem Relation Age of Onset Hypertension Father Social History Tobacco Use Smoking status: Former Packs/day: 1.50 Years: 30.00 Additional pack years: 0.00 Total pack years: 45.00 Types: Cigarettes Smokeless tobacco: Never Substance Use Topics Alcohol use: No Drug use: No Objective Physical Exam Vitals and nursing note reviewed. Constitutional: General: He is not in acute distress. Appearance: Normal appearance. He is not ill-appearing. Cardiovascular: Rate and Rhythm: Normal rate and regular rhythm. Heart sounds: Normal heart sounds. Pulmonary: Effort: Pulmonary effort is normal. No respiratory distress. Breath sounds: Normal breath sounds. No wheezing or rales. Skin: General: Skin is warm and dry. Neurological: Mental Status: He is alert. ASSESSMENT/PLAN: 1. Burning with urination - ICD9: 788.1, ICD10: R30.0 (primary diagnosis) acute - UA positive for hoda esterase, hematuria, and proteinuria - Send urine for culture - Begin treatment with Macrobid 100 mg BID for 5 days - UA DIP, URINE (POC) - URINE CULTURE - NITROFURANTOIN MONOHYDRATE AND MACROCRYSTAL 100 MG ORAL CAP 2. Acute cystitis with hematuria - ICD9: 595.0, ICD10: N30.01 3. Urinary frequency - ICD9: 788.41, ICD10: R35.0 - Follow-up with your PCP in 3-5 days if symptoms have not improved or sooner if symptoms worsen - Discussed red flags and need for immediate medical evaluation if any occur. - Discussed supportive care treatment with fluids, rest and analgesia. - Discussed expected course of illness Luz Giordano APRN.[facility] History of Present illness Narrative 10-03-2023 Luz Giordano APRN.[employer] - 10/03/2023 10:28 AM EDT Note Date & Type Note Facility 10-03-2023 History of Presen t illness Narrative Subjective HPI Margo Jimenez is a 67 year old male who presents with 2 days of dysuria and frequency and urgency. He has had intermittent flank pain. He has increased his water intake and taken advil at home. He denies fever, chills, nausea or vomiting. Review of Systems Constitutional: Negative for chills and fever. Respiratory: Negative. Cardiovascular: Negative. Gastrointestinal: Negative for abdominal pain, nausea and vomiting. Genitourinary: Positive for dysuria, flank pain, frequency and urgency. Negative for hematuria. Musculoskeletal: Negative for back pain. BP 122/80 Pulse 64 Temp 36.3 C (97.4 F) Resp 21 Wt 120.1 kg (264 lb 12.4 oz) SpO2 98% PAST MEDICAL HISTORY Diagnosis Date Essential hypertension, benign PAST SURGICAL HISTORY Procedure Laterality Date DIAGNOSIS/HISTORY maxofacial reconstruction EXPLORATORY LAPAROTOMY CELIOTOMY W/WO BIOPSY SPX 12-09-15 LAPS INSERTION TUNNELED INTRAPERITONEAL CATHETER 08/25/06 LAPS SURG CHOLECYSTECTOMY W/CHOLANGIOGRAPHY 08-24-03 SIGMOIDOSCOPY FLX DX W/COLLJ SPEC BR/WA IF PFRMD 12-09-15 ALLERGIES Patient has no known allergies. MEDICATIONS losartan (COZAAR) 100 mg tablet TAKE 1 TABLET ORALLY ONCE PER DAY FOR 30 DAYS hydroCHLOROthiazide 25 mg tablet TAKE 1 TABLET ORALLY ONCE PER DAY FOR 90 DAYS metoprolol tartrate, short acting, (LOPRESSOR) 25 mg tablet TAKE 1 TABLET BY MOUTH TWICE A DAY L00ITER metFORMIN (GLUCOPHAGE) 1,000 mg tablet TAKE 1 TABLET BY MOUTH TWICE A DAY [id number] pravastatin (PRAVACHOL) 80 mg tablet TAKE ONE TABLET BY MOUTH EVERYDAY AT BEDTIME FOR 90 DAYS pioglitazone (ACTOS) 30 mg tablet Take 1 tablet by mouth every afternoon. nitrofurantoin monohydrate and macrocrystal (MACROBID) 100 mg capsule Take 1 capsule by mouth two times a day for 5 days. BENICAR HCT 40-25 mg per tablet (Patient not taking: Reported on 10/03/2023) atorvastatin (LIPITOR) 40 mg tablet Take 40 mg by mouth once daily. (Patient not taking: Reported on 10/03/2023) OLMESARTAN MEDOXOMIL (BENICAR ORAL) Take by mouth. (Patient not taking: Reported on 10/03/2023) nebivolol (BYSTOLIC) 5 mg ORAL tablet Take 5 mg by mouth once daily. (Patient not taking: Reported on 10/03/2023) AVALIDE 300 MG-25 MG TAB Take one(1) tablet daily. (Patient not taking: Reported on 10/03/2023) FAMILY HISTORY Problem Relation Age of Onset Hypertension Father Social History Tobacco Use Smoking status: Former Packs/day: 1.50 Years: 30.00 Additional pack years: 0.00 Total pack years: 45.00 Types: Cigarettes Smokeless tobacco: Never Substance Use Topics Alcohol use: No Drug use: No Objective Physical Exam Vitals and nursing note reviewed. Constitutional: General: He is not in acute distress. Appearance: Normal appearance. He is not ill-appearing. Cardiovascular: Rate and Rhythm: Normal rate and regular rhythm. Heart sounds: Normal heart sounds. Pulmonary: Effort: Pulmonary effort is normal. No respiratory distress. Breath sounds: Normal breath sounds. No wheezing or rales. Skin: General: Skin is warm and dry. Neurological: Mental Status: He is alert. ASSESSMENT/PLAN: 1. Burning with urination - ICD9: 788.1, ICD10: R30.0 (primary diagnosis) acute - UA positive for hoda esterase, hematuria, and proteinuria - Send urine for culture - Begin treatment with Macrobid 100 mg BID for 5 days - UA DIP, URINE (POC) - URINE CULTURE - NITROFURANTOIN MONOHYDRATE & MACROCRYSTAL 100 MG ORAL CAP 2. Acute cystitis with hematuria - ICD9: 595.0, ICD10: N30.01 3. Urinary frequency - ICD9: 788.41, ICD10: R35.0 - Follow-up with your PCP in 3-5 days if symptoms have not improved or sooner if symptoms worsen - Discussed red flags and need for immediate medical evaluation if any occur. - Discussed supportive care treatment with fluids, rest and analgesia. - Discussed expected course of illness Luz Giordano APRN.[facility]IE documented in this encounter [facility] Instructions 10-03-2023 Patient Instructions Note Date & Type Note Facility 10-03-2023 Instructions Luz Giordano APRN.CNP - 10/03/2023 10:28 AM EDT ASSESSMENT/PLAN: 1. Burning with urination - ICD9: 788.1, ICD10: R30.0 (primary diagnosis) acute - UA positive for hoda esterase, hematuria, and proteinuria - Send urine for culture - Begin treatment with Macrobid 100 mg BID for 5 days - UA DIP, URINE (POC) - URINE CULTURE - NITROFURANTOIN MONOHYDRATE & MACROCRYSTAL 100 MG ORAL CAP 2. Acute cystitis with hematuria - ICD9: 595.0, ICD10: N30.01 3. Urinary frequency - ICD9: 788.41, ICD10: R35.0 - Follow-up with your PCP in 3-5 days if symptoms have not improved or sooner if symptoms worsen - Discussed red flags and need for immediate medical evaluation if any occur. - Discussed supportive care treatment with fluids, rest and analgesia. - Discussed expected course of illness Luz Giordano APRN.[facility] PATIENT INFO BLADDER INFECTION OVERVIEW Bladder infections are one of the most common infections, causing symptoms of burning with urination and needing to urinate frequently. A bladder infection is a type of urinary tract infection (UTI). Bladder infections are more common is women than men. Most women have an uncomplicated bladder infection that is easily treated with a short course of antibiotics. In men, bladder infections may also affect the prostate gland, and a longer course of treatment may be needed. BLADDER INFECTION CAUSES The urinary tract includes the kidneys (which filter urine), ureters (the tube that carries urine from the kidneys to the bladder), the bladder (which stores urine), and urethra (the tube that carries urine out of the bladder). Bacteria do not normally live in these areas. However, bacteria normally live close to the urethra in women and men who are not circumcised. Bladder infections occur when bacteria travel up the urethra into the bladder. Factors that increase the risk of developing a bladder infection include: Vaginal sex Use of spermicides History of past bladder infections Diabetes In men, not being circumcised or having anal sex increase the risk of bladder infections. BLADDER INFECTION SYMPTOMS The typical symptoms of a bladder infection include: Pain or burning when urinating Frequent need to urinate Urgent need to urinate Blood in the urine Fever, back pain, nausea, or vomiting are not common symptoms of a bladder infection, but can occur in people with a kidney infection (pyelonephritis). If you have these symptoms, you should call your doctor or nurse immediately. Is it a bladder infection or something else? -- Burning with urination can also occur in people with vaginitis (eg, yeast infection) or urethritis (inflammation of the urethra). For this reason, it is important to call your healthcare provider before assuming you have a bladder infection. BLADDER INFECTION DIAGNOSIS Simple bladder infections are usually diagnosed based upon your symptoms alone. However, most patients, especially those who have bladder infection symptoms for the first time, should see a healthcare provider for urine testing. Urine culture -- A urine culture is a test that uses a sample of urine to try and grow bacteria in a laboratory. It usually requires about 48 hours to get results. However, a urine culture is not always required to diagnose a bladder infection. Urine culture is often recommended if: You have never had a bladder infection before You have symptoms that are not typical for bladder infection You have had resistant bladder infections before You have frequent bladder infections You do not begin to feel better within 24 to 48 hours after starting antibiotics You are BLADDER INFECTION TREATMENT Bladder infection -- In young, healthy adolescents and adults with a bladder infection, the usual treatment includes a three to seven day course of antibiotics. The typical drugs chosen are: trimethoprim-sulfamethoxazole (Bactrim ), nitrofurantoin (Macrobid ), ciprofloxacin (Cipro ) or levofloxacin (Levaquin ). In men, the infection may involve your prostate gland and treatment is usually given for at least 7 days. Your symptoms should begin to resolve within one day after starting treatment. It is important to take the full course of antibiotics to completely eliminate the infection. If your symptoms persist for more than two or three days after starting treatment, call your healthcare provider. If needed, you can take a prescription medication that numbs the bladder and urethra (phenazopyridine [Pyridium ]) to reduce the burning pain of some UTIs. A similar medication is available without a prescription (eg, Uristat). Both medications change the color of the urine (usually blue or orange) and can interfere with laboratory testing. You should not take these medications for more than 48 hours due to the risk of side effects. These medications do not treat the infection and must be taken along with an antibiotic. Some providers recommend drinking more fluids while treating bladder infections to help flush bacteria from the bladder. Others believe that drinking more fluids may dilute the antibiotic in the bladder and make the medication less effective. No studies have been performed to address this issue. There are also no good studies on the effectiveness of cranberry juice for treating a bladder infection; we do not recommend using cranberry juice to treat bladder infections. Follow-up care -- Follow-up testing is not needed in healthy, young men or women with a bladder infection if symptoms resolve. women are usually asked to have a repeat urine culture one to two weeks after treatment has ended to make sure the bacteria are no longer in the urine. RECURRENT BLADDER INFECTIONS Bladder infections versus other causes -- Some adults, especially women, develop bladder infections frequently. In this case, it is important to confirm that your symptoms (eg, pain or burning, frequency, and urgency) are caused by a bladder infection. Symptoms are usually similar from one infection to another. The best way to confirm an infection is to have a urine culture. If your urine culture is negative for infection, other causes of pain, burning, and frequency should be investigated. There is no reason to take antibiotics if your urine culture is negative. Need for further testing -- If you continue to develop bladder infections, you may require further testing. If you continue to notice blood in your urine after your bladder infection has cleared, you should have further testing. Preventing recurrent UTIs -- Women with recurrent urinary tract infections may be advised to take steps to prevent bladder infections, including one or more of the following: Changes in control -- Women who develop frequent bladder infections and use spermicides, particularly those who also use a diaphragm, may be encouraged to use an alternate method of control. Cranberry products -- Taking cranberry juice or cranberry tablets has been promoted as one way to help prevent frequent bladder infections. However, this has not been proven. Drinking more fluid and urinating after intercourse -- Although studies have not proven that drinking more fluids or urinating soon after intercourse can prevent infection, some healthcare providers recommend these measures since they are not harmful. Drinking more fluid may help to wash out bacteria that enter the bladder. Postmenopausal women -- Postmenopausal women who develop recurrent bladder infections may benefit from using vaginal estrogen. Vaginal estrogen is available in a flexible ring that is worn in the vagina for three months (eg, Estring ), a small tablet (Vagifem ), or a cream (eg, Premarin or Estrace ). Vaginal estrogen is discussed in more detail in a separate topic review. Antibiotics -- A preventive antibiotic treatment may be recommended if you repeatedly develop bladder infections and have not responded to other preventive measures. Antibiotics are highly effective in preventing recurrent bladder infections and can be taken in several different ways. Preventive antibiotic -- You can take a low dose of an antibiotic once per day or three times per week for six months to several years. Antibiotics following intercourse -- In women who develop urinary tract infections after sex, taking a single low dose antibiotic after intercourse can help to prevent bladder infections. Self-treatment -- A plan to begin antibiotics at the first sign of a bladder infection may be recommended in some situations. Before starting this regimen, it is important that you have had testing (urine cultures) to confirm that your symptoms are caused by a bladder infection; some people have symptoms of a bladder infection but do not actually have an infection. documented in this encounter [facility] Evaluation note Note Date & Type Note Facility Evaluation note No assessment information availa ble [facility] Work Phone: Evaluation note Note Date & Type Note Facility Evaluation note Diagnosis Burning with urination- Primary Dysuria Acute cystitis with hematuria Acute cystitis Urinary frequency documented in this encounter [facility] Reason for referral (narrative) Note Date & Type Note Facility Reason for referral (narrative) No reason for referral information available [facility] Work Phone: Advance Directives No Advanced Directives Records Found Advance Directive Response Recorded Date/ Time Advance Directives No December 11, 2015 10:29am Living Will No March 09 4:47am Power of Superintendent Maintenance No March 09, 2021 4:47am Advance Directive Response Recorded Date/ Time Advance Directives No December 11, 2015 11:29am Living Will No March 09 5:47am Power of Superintendent Maintenance No March 09, 2021 5:47am Advance Directive Response Recorded Date/ Time Advance Directives No December 11, 2015 11:29am Summary Purpose Family History No Family History Records FoundNo Family History Records FoundNo Family History Records Found Additional Source Comments Care Teams (unrecognized sec tion and content) Team Status: Active Member Role Status Dates Dr. William Arnold MD Family Provider Active Dr. William Arnold MD Primary Care Provider Active Team Status: Inactive Member Role Status Dates Dr. William Arnold MD Primary Care Provider, Attending Provider Active Battery Loader Relationship Specialty Start Date End Date William Arnold Chi [address] [place] [address] PCP - General Gerontology 04/17/19 Battery Loader Relationship Specialty Start Date End Date William Arnold Chi [address] [place] [address] PCP - General Gerontology 04/17/19 Team Status: Inactive Member Role Status Dates Dr. William Arnold MD Primary Care Provider Active Start: July 02, 2024 End: July 02, 2024 Dr. William Arnold MD Attending Provider Active Start: July 02, 2024 End: July 02, 2024 Goals (unrecognized section and content) Goals may be documented in a n alternate sectionGoals may be documented in an alternate sectionGoals may be documented in an alternate sectionGoals may be documented in an alternate section Source Comments (unrecognize d section and content) In the event this informatio n is protected by the Federal Confidentiality of Alcohol and Drug Abuse Patient Records regulations: The Federal rules restrict any use of the information to criminally investigate or prosecute any alcohol or drug abuse patient.[facility] the event this information is protected by the Federal Confidentiality of Alcohol and Drug Abuse Patient Records regulations: The Federal rules restrict any use of the information to criminally investigate or prosecute any alcohol or drug abuse patient.[facility] Reason for Visit (unrecogniz ed section and content) Reason Comments Urinary Problem Burning with urinati on x 2 days Reason Comments Results (unrecognized sect ion and content) No Status Records FoundNo Status Records FoundNo Status Records Found INFORMATION SOURCE (unrecogn ized section and content) DATE CREATED AUTHOR 10/06/2023 [facility] DATE CREATED AUTHOR AUTHOR'S ORGANIZ ATION 10/11/2023 [facility] DATE CREATED AUTHOR AUTHOR'S ORGANIZ ATION 08/06/2024 [facility] FOR RECORDS PERTAINING TO PATIENTS WHO ARE [...] BE BASED ON THE PRIMARY CLINICAL RECORDS. [facility]. provides no warranty or guarantee of the accuracy or completeness of information in this document.
[2024-10-03 11:51] LABS: Vitamin D,25 Hydroxy 19.5 ng/mL (30-100)
[2024-10-03 11:57] LABS: ALB/GLOB Ratio 1.8 RATIO (0.9-2.4); AST(SGOT) 32 U/L (<=37); Alanine Aminotransfer ALT/SGPT 23 U/L (<=46); Albumin, Serum 4.3 g/dL (3.4-4.8); Alkaline Phosphatase 84 U/L (40-129); Anion Gap 11 (5-15); BUN 13 mg/dL (4-19); BUN/Creat Ratio 11.3 RATIO (10-20); Calcium,Total 9.9 mg/dL (7.6-11.0); Carbon Dioxide 25.3 mmol/L (21.0-32.0); Chloride 104 mmol/L (98-108); Creatinine, Serum 1.12 mg/dL (0.70-1.20); EST Glomerular Filtration Rate 71 (>60); Globulin 2.4 g/dL (2.2-4.2); Glucose 158 mg/dL (70-99); Potassium 4.5 mmol/L (3.3-5.1); Protein, Total 6.7 g/dL (5.9-8.4); Sodium Level 141 mmol/L (133-145); Total Bilirubin 0.75 mg/dL (0.00-1.30)
== END | disposition home or self-care (01) ==
PROVIDERS: PCP Family Medicine Geriatric Medicine; Referring Provider Family Medicine Geriatric Medicine; Visit Provider Family Medicine Geriatric Medicine
DX: E11.65 Type 2 diabetes mellitus with hyperglycemia (principal); I10 Essential (primary) hypertension; E55.9 Vitamin D deficiency, unspecified
CPT/HCPCS: 36415; 80053; 82306; 84443; 85025